=== PATIENT | female | born 1945 | race Caucasian/White ===

== ENCOUNTER 2019-08-24 20:00 | Outpatient (CLI) | payer MEDICARE, OTHER, SELFPAY | END 2019-08-24 20:01 | disposition home or self-care (01) | LOC: SLEEP 08-25 10:06 | PROVIDERS: Family Provider Family Medicine; PCP Family Medicine; Visit Provider Family Medicine | DX: G47.33 Obstructive sleep apnea (adult) (pediatric) (principal) | CPT/HCPCS: 95810 ==

== ENCOUNTER 2020-02-21 10:38 | Outpatient (CLI) | payer MEDICARE, OTHER, SELFPAY ==
--- NOTE | 2020-02-21 10:54 | XRR_ITS ---
PROCEDURE INFORMATION: Exam: XR Lumbosacral Spine, 2 or 3 Views Exam date and time: 02/21/2020 11:39 AM Age: 74 years old Clinical indication: Other: Right lumbar radiculopathy TECHNIQUE: Imaging protocol: XR of the lumbosacral spine, 2 or 3 views. COMPARISON: US Renal Kidney Structu* [id number] 03/02/2018 8:35 AM FINDINGS: Vertebrae: Severe diffuse degenerative disc disease reflected as severe decrease in disc space height and anterior endplate osteophytosis. No spondylolisthesis No pars defect. No fracture. Multi-level facet hypertrophic changes- Soft tissues: Unremarkable. XR/XR lumbar spine 2-3V* [id number] IMPRESSION: Severe diffuse degenerative disc disease.
== END 2020-02-21 10:39 | disposition home or self-care (01) ==
LOC: RAD 10:46
PROVIDERS: PCP Family Medicine; Visit Provider Family Medicine
DX: M54.16 Radiculopathy, lumbar region (principal); M51.36 Other intervertebral disc degeneration, lumbar region
CPT/HCPCS: 72100

== ENCOUNTER 2020-03-02 07:58 | Outpatient (CLI) | payer MEDICARE, OTHER, SELFPAY ==
--- NOTE | 2020-03-02 08:08 | MM_ITS ---
WS: [id number] Bilateral diagnostic digital mammogram, 03/02/2020 Clinical Data: HX OF BREAST CA Comparison: 10/31/2017, 10/17/2017. Findings: There is a scar in the upper outer quadrant of the right breast. No evidence for recurrence is seen. There are ductal calcifications in both breasts. Fibroglandular tissue is seen. MM/[place] [id number] Impression: 1. Scarring upper outer quadrant right breast but no evidence of recurrence. 2. Negative left breast. 3. Recommend annual mammograms. BIRADS: 2-Benign FOLLOW UP: 1 Year Follow-up The CAD checker product design was used.
== END 2020-03-02 07:59 | disposition home or self-care (01) ==
LOC: RADSHAW 08:05
PROVIDERS: PCP Family Medicine; Visit Provider Family Medicine
DX: Z85.3 Personal history of malignant neoplasm of breast (principal)
CPT/HCPCS: 77066

== ENCOUNTER 2020-03-08 12:22 | Outpatient (CLI) | payer MEDICARE, OTHER, SELFPAY ==
--- NOTE | 2020-03-08 12:45 | US_ITS ---
WS: [id number] RENAL ULTRASOUND URINARY BLADDER ULTRASOUND HISTORY: CKD STAGE III COMPARISON: 03/02/2018 TECHNIQUE: 2-D and color Doppler imaging of the kidney submitted. Technically difficult evaluation of the kidneys due to body habitus. Right kidney: 11.2 cm x 4.8 cm x 4.9 cm. Poorly visualized kidney. There is no hydronephrosis or mass identified. Simple cyst from the inferio r pole measures 3.3 x 2.3 x 3.0 cm. Left kidney: 10.7 cm x 4.2 cm x 5.0 cm. Poorly visualized kidney. No hydronephrosis or mass identified. Several cysts associated with the LEF T kidney. Largest in the mid kidney measures 4.7 x 4.4 x 4.8 cm. No solid mass. Aorta: Not visualized. Urinary Bladder: Moderate distention of the urinary bladder. No intraluminal filling defects. No sign ificant post void residual. US/US renal BI* [id number] IMPRESSION: 1. Technically difficult evaluation of the kidneys due to body habitus. 2. Bilateral renal cysts. 3. No hydronephrosis. 4. No post void residual.
== END 2020-03-08 12:23 | disposition home or self-care (01) ==
LOC: RAD 12:25
PROVIDERS: PCP Family Medicine; Visit Provider Family Medicine
DX: N18.3 Chronic kidney disease, stage 3 (moderate) (principal); Q61.02 Congenital multiple renal cysts
CPT/HCPCS: 76770

== ENCOUNTER 2020-03-20 08:40 | Outpatient (CLI) | payer MEDICARE, OTHER, SELFPAY ==
--- NOTE | 2020-03-20 09:50 | FL_ITS ---
WS: [id number] MODIFIED BARIUM SWALLOW HISTORY: Other dysphagia FLUOROSCOPY TIME: 1.4 minutes. Modified barium swallow was performed by the speech pathologist. Fluoroscopy was provided with the pa tient in a lateral projection. Multiple food consistencies were provided. Patient swallowed all food consistencies without difficulty. There were a few episodes of laryngeal p enetration with the thin liquids. No aspiration. Barium tablet was swallowed without difficulty. FL/FL barium swallow modifd [id number] IMPRESSION: 1. A few episodes of laryngeal penetration with thin liquids. 2. No aspiration. Please see speech therapist report also for recommendations.
== END 2020-03-20 08:41 | disposition home or self-care (01) ==
PROVIDERS: PCP Family Medicine; Visit Provider Specialist
DX: R13.10 Dysphagia, unspecified (principal)
CPT/HCPCS: 74230; 92611

== ENCOUNTER 2020-03-27 07:06 | Outpatient (CLI) | payer MEDICARE, OTHER, SELFPAY ==
--- NOTE | 2020-03-27 07:17 | CT_ITS ---
WS: [id number] CT NECK TECHNIQUE: Contrast-enhanced CT of the neck with coronal and sagittal reformatted images. CLINICAL INFORMATION: DYSPHAGIA COMPARISON: None. DLP: 1006.[address] scans at [facility] use at least one of these dose optimization techniques: automat ed exposure control; mA and/or kV adjustment per patient size (includes targeted exams where dose is matched to clinical indication); or iterative reconstruction. FINDINGS: Parotid glands are normal. Normal submandibular glands. Normal parapharyngeal fat. Tongue base appear s normal. Normal piriform sinuses. Subglottic airway is patent. Paranasal sinuses and mastoid air cells well aerated. Slightly nodular right thyroid gland. No cervi constantin lymphadenopathy. Aortic calcification. Tortuous right subclavian artery. Spiculated fibrotic lesion in the right upper lobe measuring 8 mm is nonspecific. Noncalcified pulmonary nodule right upper lobe laterally partial ly visualized measuring 9 mm. Recommend further evaluation with chest CT. CT/CT neck w con* [id number] IMPRESSION: 1. No evidence of supraglottic or glottic mass. 2. Normal salivary glands. 3. Normal posterior nasopharynx and parapharyngeal fat. Normal subglottic airw ay. 4. No cervical lymphadenopathy. 5. 8 mm spiculated lesion right upper lobe is nonspecific. Recommend further e valuation with chest CT. Additional noncalcified nodule right upper lobe latera lly measuring 9 mm partially visualized. 6. Slight nodular right thyroid gland. This can be followed up with ultrasound .
--- NOTE | 2020-03-27 07:17 | FL_ITS ---
WS: [id number] ESOPHAGRAM TECHNIQUE: Double contrast examination was performed with thin and thick barium. Upright and CORREA imag es were obtained. CLINICAL INFORMATION: DYSPHAGIA COMPARISON: None. FINDINGS: Swallowing: No evidence of aspiration or penetration with thin liquid. Esophagus: Mild esophageal dysmotility with delayed emptying. No stricture or mass. Gastroesophageal reflux: Mild reflux into the distal esophagus only seen on the supine imaging. Small esophageal hiatal hernia. No difficulties with the barium tablet. Fluoroscopy time: 2.9 minutes. FL/FL barium swallow [id number] IMPRESSION: 1. No evidence of aspiration or penetration with thin liquids. 2. Mild esophageal dysmotility with delayed emptying on the upright imaging. 3. Mild reflux only seen on the supine imaging to the distal esophagus. Small esophageal hiatal hernia.
[2020-03-27 08:49] LABS: Hematocrit 42.9 % (37.0-47.0); Hemoglobin 12.9 g/dL (11.5-15.3); Mean Corpuscular HGB Conc 30.1 g/dL (30.0-36.0); Mean Corpuscular Hemoglobin 27.4 pg (28.0-34.0); Mean Corpuscular Volume 91.1 fL (81-99); Mean Platelet Volume 10.7 fL (7.4-10.4); Platelet Count 241 10^3/cmm (130-400); Red Blood Count 4.71 10^6/uL (4.1-5.3); Red Cell Distribution Width 14.1 % (12.1-15.1); White Blood Count 7.6 10^3/uL (4.0-10.0)
[2020-03-27 09:12] LABS: Blood Urea Nitrogen 21 mg/dL (8-23); Free T4 Free Thyroxine 1.18 ng/dL (0.82-1.77); Thyroid Stimulating Hormone 2.82 uIU/mL (0.27-4.20)
[2020-03-27 09:31] LABS: Band Neutrophils Absolute 0.2 10^3/cmm (0.0-1.2); Lymphocytes 15 %; Monocytes Absolute 0.2 10^3/cmm (0.1-0.6); Segmented Neutrophils 79 %; Total Cells Counted 100 (0-100)
[2020-03-27 09:32] LABS: Absolute Neutrophil 6.2 10^3/cmm (1.4-6.5); Platelet Estimate Normal (Normal)
[2020-03-27 09:50] LABS: Erythrocyte Sedimentation Rate 38 mm/hr (0-15)
[2020-03-28 18:03] LABS: Alternaria Alternata (M6) Ige 0.49 kU/L; Alternaria Class 1; Bermuda Class 0; Bermuda Grass (G2) Ige <0.10 kU/L; Cat Dander (E1) Ige <0.10 kU/L; Cat Dander Class 0; Common Ragweed (Short) (W1) Ig <0.10 kU/L; D. Farinae Class 2; Dermatophagoides Class 2; Dermatophagoides Farinae (D2) 1.05 kU/L; Dermatophagoides Pteronyssinus 1.22 kU/L; Dog Dander (E5) Ige <0.10 kU/L; Dog Dander Class 0; Elm (T8) Ige <0.10 kU/L; Elm Class 0; English Plantain (W9) Ige <0.10 kU/L; English Plantain Class 0; House Dust (Greer) (H1) Ige 0.24 kU/L; House Dust Class 0/1; Immunoglobulin E 308 kU/L (<OR=114); Johnson Grass (G10) Ige <0.10 kU/L; Johnson Grass Cl 0; June Grass Class 0; June Grass(Kentucky Blue) (G8) <0.10 kU/L; Lamb'S Quarters (Goose Foot) <0.10 kU/L; Lamb'S Quarters Class 0; Maple (Box Elder) (T1) Ige <0.10 kU/L; Maple Class 0; Meadow Fescue (G4) Ige <0.10 kU/L; Meadow Fescue Class 0; Mucor Racemosus Class 0; Oak (T7) Ige <0.10 kU/L; Oak Class 0; Orchard Grass (Cocksfoot) (G3) <0.10 kU/L; Penicillium Class 0/1; Penicillium Notatum (M1) Ige 0.19 kU/L; Perennial Rye Grass (G5) Ige <0.10 kU/L; Perennial Rye Grass Class 0; Ragweeed Class 0; Rough Marsh Elder (W16) Ige <0.10 kU/L; Rough Marsh Elder Class 0; Sweet Vernal Class 0; Sweet Vernal Grass (G1) Ige <0.10 kU/L; Timothy Grass (G6) Ige <0.10 kU/L; Timothy Grass Class 0
[2020-03-29 12:14] LABS: Anti-Nuclear Antibody Screen POSITIVE (NEGATIVE)
[2020-03-30 18:49] LABS: Aspergillus Fumigatus, Igg Ab, 15.1 mg/L (<=102)
== END 2020-03-27 07:07 | disposition home or self-care (01) ==
PROVIDERS: PCP Family Medicine; Visit Provider Specialist
DX: R13.10 Dysphagia, unspecified (principal); R91.1 Solitary pulmonary nodule; E04.1 Nontoxic single thyroid nodule; K44.9 Diaphragmatic hernia without obstruction or gangrene
CPT/HCPCS: 70491; 74220; 82565; 82785; 84439; 84443; 84520; 85007; 85027; 85651; 86003; 86038; 86160; 86161

== ENCOUNTER → 2020-04-13 12:28 | Outpatient (BNVA) | payer MEDICARE, OTHER, SELFPAY | PROVIDERS: PCP Family Medicine; Referring Provider Family Medicine; Visit Provider Urology | DX: R31.9 Hematuria, unspecified (principal); N39.41 Urge incontinence | CPT/HCPCS: 80053; 81001 ==

== ENCOUNTER → 2020-04-20 09:15 | Outpatient (BNVA) | payer MEDICARE, OTHER, SELFPAY | PROVIDERS: PCP Family Medicine; Referring Provider Family Medicine; Visit Provider Anesthesiology Pain Medicine | DX: M51.36 Other intervertebral disc degeneration, lumbar region (principal); M47.816 Spondylosis without myelopathy or radiculopathy, lumbar region; M54.16 Radiculopathy, lumbar region; M54.9 Dorsalgia, unspecified; R09.02 Hypoxemia; Z79.891 Long term (current) use of opiate analgesic | CPT/HCPCS: 88112; 99203; 99204 ==

== ENCOUNTER 2020-04-28 07:39 | Outpatient (CLI) | payer MEDICARE, OTHER, SELFPAY ==
--- NOTE | 2020-04-28 07:57 | MR_ITS ---
WS: [id number] MRI LUMBAR SPINE NONCONTRAST HISTORY: M54.16 Radiculopathy, lumbar region COMPARISON: None available. TECHNIQUE: Sagittal and axial multisequence imaging is submitted. Moderate increase in thoracic kyphosis. No cord compression. Posterior lumbar alignment is normal. Benign hemangioma in T10. Severe disc space narrowing and desic cation at L5-S1. Additional benign hemangioma at L4. No marrow edema or acute fracture in the lumbar spine. Conus terminates normally at L1. L1-L2: No stenosis. No disc protrusion. L2-L3: Mild facet arthritis. No significant stenosis. L3-L4: Very mild annular disc bulging and facet arthritis. No significant stenosis. L4-L5: Very mild annular disc bulging. Mild to moderate facet joint arthritis bilaterally and ligamen mike flavum hypertrophy. There is minimal encroachment into the LEFT foramen by facet disease nerve ro ots and thecal sac are becoming distributed within the periphery. No significant stenosis. L5-S1: Mild osteophytic ridging. There is a very shallow LEFT foraminal disc protrusion. Very minimal narrowing of the LEFT foramen. Again nerve roots are distributed within the periphery of the thecal sac. Numerous bilateral renal cysts. Some of these cysts are large. The largest measures 10 cm involving t he LEFT kidney. r 2 cm lipoma subcutaneous soft tissues at the L4-5 level. MR/MR lumbar spine wo con* [id number] IMPRESSION: 1. No significant central or foraminal stenosis. 2. Very minimal encroachment into the LEFT foramen at L4-5 and L5-S1. 3. [id number] facet joint arthritis at L4-5. 4. Severe degenerative disc disease at L5-S1.
== END 2020-04-28 07:40 | disposition home or self-care (01) ==
LOC: RADWPI 07:46
PROVIDERS: Family Provider Family Medicine; PCP Family Medicine; Visit Provider Anesthesiology Pain Medicine
DX: M54.16 Radiculopathy, lumbar region (principal); M47.816 Spondylosis without myelopathy or radiculopathy, lumbar region; M51.37 Other intervertebral disc degeneration, lumbosacral region
CPT/HCPCS: 72148

== ENCOUNTER 2020-05-18 06:43 | Outpatient (CLI) | payer MEDICARE, OTHER, SELFPAY ==
[2020-05-18 07:49] LABS: Blood Urea Nitrogen 27 mg/dL (8-23)
--- NOTE | 2020-05-18 08:00 | CT_ITS ---
WS: [id number] CT ABDOMEN AND PELVIS WITH AND WITHOUT CONTRAST HISTORY: HEMATURIA TECHNIQUE: Unenhanced 5 mm axial imaging first performed through the abdomen. Post contrast imaging t hrough the abdomen and pelvis. Oral contrast has not been provided. Sagittal and coronal reformats a re submitted. All CT scans at [facility] use at least one of these dose optimization tech niques: automated exposure control; mA and/or kV adjustment per patient size (includes targeted exams where dose is matched to clinical indication); or iterative reconstruction. CONTRAST: Visipaque 320; 95 mL IV. DLP: 6138.87 mGy.cm COMPARISON: 11/13/2018, MRI 11/17/2018 Lung bases are clear. Heart size is normal. No hiatal hernia. RIGHT kidney: Normal size RIGHT kidney measuring 12.2 cm in length. There are numerous cystic masses within the kidney which do not enhance. Majority of these are cysts. There are a few cysts of minimal increased attenuation which do not enhance. The largest cyst from the lower pole measures 4.2 x 3.8 cm. No hydronephrosis or ureteral obstruction. RIGHT ureter is visualized throughout nearly its entir e course. Focal filling defect in the mid RIGHT ureter near the pelvic brim, image 59 of series 5. LEFT kidney: LEFT kidney measures 14.1 cm in length. Multiple cysts are identified. Largest cyst from the mid lateral kidney measures 6.5 x 8.8 cm. No solid mass. No renal calcification or obstruction. LEFT kidney is being elevated from the retroperitoneum by the large posterior cyst. Hepatic and splenic granulomata. Prior cholecystectomy. Again noted is the lobulated cystic mass at t he pancreatic head measuring 1.9 x 2.5 cm without increase in size. Again noted is nodular thickening of the LEFT adrenal gland which is stable. RIGHT adrenal gland is normal. Mild atherosclerosis aorta . Fat-containing umbilical hernia. No GI tract obstruction. Sigmoid diverticulosis without acute dive rticulitis. Normally distended urinary bladder. No intraluminal filling defect. Increase in lumbar lordosis. No osteoblastic or osteolytic bone disease. CT/CT abdomen pelvis wo/w [id number] IMPRESSION: 1. Numerous bilateral renal cysts of various sizes. No solid mass or neoplasm identified. 2. Filling defect in the mid RIGHT ureter may be incomplete distention related to tortuosity of the ureter. Ureteral neoplasm is not excluded but thought to be less likely. 3. No renal obstruction or calcifications. 4. Prior cholecystectomy. 5. 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 No change since 11/17/2018. 6. No ascites or adenopathy. 7. Negative urinary bladder.
[2020-05-18] MEDS: iodixanol 320 mg/mL 100mL Btl IV (08:14)
== END 2020-05-18 06:44 | disposition home or self-care (01) ==
LOC: RAD 06:45
PROVIDERS: Family Provider Family Medicine; PCP Family Medicine; Visit Provider Urology
DX: R31.9 Hematuria, unspecified (principal); K86.9 Disease of pancreas, unspecified; Q61.02 Congenital multiple renal cysts; N39.41 Urge incontinence
CPT/HCPCS: 36415; 74178; 81001; 82565; 84520

== ENCOUNTER → 2020-05-25 09:50 | Outpatient (BNVA) | payer MEDICARE, OTHER, SELFPAY | PROVIDERS: Family Provider Family Medicine; PCP Family Medicine; Visit Provider Anesthesiology Pain Medicine | DX: M54.9 Dorsalgia, unspecified (principal); M51.36 Other intervertebral disc degeneration, lumbar region; M47.816 Spondylosis without myelopathy or radiculopathy, lumbar region; M54.16 Radiculopathy, lumbar region | CPT/HCPCS: 99213; 99214 ==

== ENCOUNTER → 2020-07-20 12:37 | Outpatient (BNVA) | payer MEDICARE, OTHER, SELFPAY | PROVIDERS: Family Provider Family Medicine; PCP Family Medicine; Visit Provider Anesthesiology Pain Medicine | DX: M51.36 Other intervertebral disc degeneration, lumbar region (principal); M47.816 Spondylosis without myelopathy or radiculopathy, lumbar region; M54.16 Radiculopathy, lumbar region; M54.9 Dorsalgia, unspecified; Z79.899 Other long term (current) drug therapy | CPT/HCPCS: 99213 ==

== ENCOUNTER 2020-11-21 08:46 | Emergency (ER) | payer MEDICARE, OTHER, SELFPAY ==
[2020-11-21 09:12] VITALS: BP 190/90; PULSE 74; RESP 28; TEMP 37.2; O2SAT 95; BMI 33.0
--- NOTE | 2020-11-21 09:28 | XRR_ITS ---
PROCEDURE INFORMATION: Exam: XR Chest Exam date and time: 11/21/2020 9:41 AM Age: 75 years old Clinical indication: Cough and dyspnea; Additional info: Dyspnea/cough TECHNIQUE: Imaging protocol: XR of the chest Views: Frontal portable upright view of the chest. COMPARISON: CR Chest 1 [place] [id number] 07/26/2019 12:05 PM FINDINGS: Lungs: The lungs are clear bilaterally. The pulmonary vasculature is normal. Pleural spaces: No pleural effusion. No pneumothorax. Heart/Mediastinum: The heart is normal in size and contour. Mediastinum: Stable. Vasculature: Moderate aortic arch atherosclerotic calcification without ectasia. Bones/joints: Stable. XR/XR chest 1V portable [id number] IMPRESSION: No acute cardiopulmonary abnormality identified.
--- NOTE | 2020-11-21 09:28 | ECG_ITS ---
[facility] Test Date: 2020-11-21 Pat Name: Savannah Poon Department: Room: Gender: Female Call Or Contact Centre Coach: : 1945 Requested By: Robert Alegre Order Number: [id number] Letha MD: Benjamin Lakhani M.D. Measurements Intervals [place] Rate: 76 P: 180 HI: 158 QRS: 185 QRSD: 98 T: 165 QT: 372 QTc: 419 Interpretive Statements Supraventricular rhythm likely sinus rhythm (Interpretation limited because of baseline abnormalities) POSSIBLE RIGHT VENTRICULAR HYPERTROPHY [SOME/ALL OF: PROMINENT R IN V1, LATE TRANSITION, RAD, KEYA, SSS] LATERAL MYOCARDIAL INFARCTION , OF INDETERMINATE AGE [40+ ms Q WAVE AND/OR ST/T ABNORMALITY IN I/aVL/V5/V6] Compared to ECG 11/12/2018 18:23:11 Ectopic atrial rhythm now present Sinus rhythm no longer present Sinus arrhythmia no longer present Myocardial infarct finding still present Electronically Signed On 11-21-2020 17:01:37 CDT by Benjamin Lakhani M.D. [id number]
--- NOTE | 2020-11-21 09:35 | W.ED.SOB ---
HPI - SOB/Dyspnea General: Chief Complaint: Shortness of Breath/Dyspnea Stated Complaint: COUGH, SOB, DRAINAGE Time Seen by Provider: 11/21/20 08:48 History of Present Illness: HPI Narrative: 75-year-old female presents emergency room complaining of 4 days of shortness of breath cough nasal drainage. Cough is been moderately productive. She is not had any chest pain or abdominal pain she has had some dysuria however. She denies fevers no anosmia or diarrhea. MD elicited complaint: shortness of breath and cough Pertinent past history: COPD Onset (ago): day(s) (4) Timing: constant Severity: mild Exacerbating factors: exertion and coughing Relieving factors: rest and bronchodilators Known history of: COPD Associated symptoms: Reports chest congestion, cough and fever(s); Deny abdominal pain, chest pain, diaphoresis, dizziness, extremity pain, hemoptysis, lightheadedness, myalgias, nausea, orthopnea, palpitations, paresthesias, polydipsia, polyuria, rash, sense of impending doom, syncope or vomiting Treatment prior to arrival: none Review of Systems Const: Reports: fever(s); Denies: diaphoresis ENMT: Denies: throat pain, ear or mastoid pain, nasal discharge or nasal congestion Card: Denies: chest pain, palpitations, lightheadedness, syncope or orthopnea Resp: Reports: chest congestion; Denies: hemoptysis GI: Denies: abdominal pain, nausea or vomiting : Denies: flank pain, difficulty voiding, dysuria, urinary frequency or urinary urgency Musc: Denies: extremity pain Skin/Breast: Denies: rash or pruritus Neuro: Denies: dizziness Endo: Denies: polyuria or polydipsia PFSH ED PFSH: Medical History (Updated 11/21/20 @ 11:05 by Robert Bautista DO) Asymptomatic microscopic hematuria COPD (chronic obstructive pulmonary disease) Urgency incontinence Family History Denies family history of Anesthesia complication Social History Smoking and tobacco status: former smoker Alcohol intake: former Adopted: No Caregiver/support person: No Lives independently: Yes Marital status: / Current occupational status: retired Physical Exam Const: COMMON NORMALS: no acute distress GENERAL APPEARANCE: cooperative and comfortable ORIENTATION/CONSCIOUSNESS: Yes awake, Yes oriented to person, Yes oriented to place and Yes oriented to time HENMT: COMMON NORMALS: normocephalic, atraumatic and hearing grossly normal bilaterally HEAD & SCALP: normocephalic and atraumatic Neck/C-Spine: COMMON NORMALS: no JVD Resp: COMMON NORMALS: normal respiratory effort, No retractions, No use of accessory muscles and clear to auscultation bilaterally AUSCULTATION: clear to auscultation bilaterally Cardio: COMMON NORMALS: no JVD, regular rate, regular rhythm and No murmurs present (Cardio) RATE: regular rate RHYTHM: regular rhythm GI: COMMON NORMALS: Soft to palpation and No hepatosplenomegaly present AUSCULTATION: Yes normoactive bowel sounds PALPATION: Yes Soft to palpation, No Tenderness to palpation present (GI), No Guarding due to palpation present (GI) and Yes No hepatosplenomegaly present Extremity: COMMON NORMALS: normal to inspection, capillary refill normal, no clubbing, cyanosis or edema, no calf tenderness and no pedal edema Neuro: SENSORIUM/ORIENTATION: Yes oriented to person, Yes oriented to place and Yes oriented to time Skin: COMMON NORMALS: no rashes or lesions noted GENERAL SKIN EXAM: no rashes or lesions noted Course Vital Signs: Vital signs: Vital Signs Temperature 99.0 F 11/21/20 09:12 Pulse Rate 78 11/21/20 11:26 Respiratory Rate 24 H 11/21/20 11:26 Blood Pressure 190/90 11/21/20 09:12 Pulse Oximetry 95 11/21/20 11:26 MDM - SOB/Dyspnea MDM Narrative: Medical decision making narrative: Appears to be more of a COPD exacerbation. She does have some rhinorrhea and had some loose stools and will go ahead and test her with a PCR for Covid. Ascaris maintain self quarantine until results are back we will discharge her home on Medrol Dosepak doxycycline and albuterol if she has worsening symptoms return. Lab Data: Labs: Lab Results 11/21/20 11/21/20 11/21/20 Range/Units 10:20 10:20 10:20 WBC 10.6 H (4.0-10.0) 10^3/ uL RBC 4.54 (4.1-5.3) 10^6/u L Hgb 12.8 (11.5-15.3) g/dL Hct 40.6 (37.0-47.0) % MCV 89.4 (81-99) fL MCH 28.2 (28.0-34.0) pg MCHC 31.5 (30.0-36.0) g/dL RDW 13.9 (12.1-15.1) % Plt Count 241 (130-400) 10^3/c mm MPV 10.5 H (7.4-10.4) fL Neut % (Auto) 82.1 % Lymph % (Auto) 7.7 % Bleckley % (Auto) 7.7 % Eos % (Auto) 1.9 % Baso % (Auto) 0.3 % Neut # (Auto) 8.73 H (1.8-7.7) 10^3/u L Lymph # (Auto) 0.8 (0.8-4.8) 10^3/u L Bleckley # (Auto) 0.8 (0.2-0.9) 10^3/u L Eos # (Auto) 0.2 (0.0-0.8) 10^3/u L Baso # (Auto) 0.0 (0.0-0.1) 10^3/u L Nucleated RBC % (a uto) 0 % Nucleated RBCs # 0.0 /100WBC Sodium 138 (136-145) mmol/L Potassium 3.7 (3.5-5.1) mmol/L Chloride 100 (98-107) mmol/L Carbon Dioxide 28 (22-29) mmol/L Anion Gap 13.7 (5-19) BUN 22 (8-23) mg/dL Creatinine 0.9 (0.5-0.9) mg/dL GFR Calculation Not Reportable Glucose 106 (65-115) mg/dL Calculated Osmolal ity 290 (285-295) mOsm/k g Calcium 8.7 (8.5-10.5) mg/dL Total Bilirubin 0.4 (0.15-1.2) mg/dL AST 10 (0-32) U/L ALT 9 (0-33) U/L Alkaline Phosphata se 62 (35-105) IU/L Total Protein 7.1 (6.6-8.7) g/dL Albumin 4.0 (3.5-5.2) g/dL Globulin 3.1 (1.3-4.6) g/dL Urine Color (Yellow) Urine Appearance (CLEAR) Urine pH (5-7) Ur Specific Gravit y (1.005-1.030) Urine Protein (Negative) Urine Glucose (UA) (Normal) Urine Ketones (Negative) Urine Blood (Negative) Urine Nitrate (Negative) Urine Bilirubin (Negative) Urine Urobilinogen (Negative) mg/dL Ur Leukocyte Courtney ase (Negative) Urine RBC (0-2) /hpf Urine WBC (0-5) /hpf Ur Squamous Epith Cells (0-5) /hpf Amorphous Sediment Urine Bacteria (NONE) /hpf Urine Mucus /hpf Urine Yeast /hpf Nasal/Oral COVID-1 9 PCR Not detected 11/21/20 Range/Units 11:07 WBC (4.0-10.0) 10^3/ uL RBC (4.1-5.3) 10^6/u L Hgb (11.5-15.3) g/dL Hct (37.0-47.0) % MCV (81-99) fL MCH (28.0-34.0) pg MCHC (30.0-36.0) g/dL RDW (12.1-15.1) % Plt Count (130-400) 10^3/c mm MPV (7.4-10.4) fL Neut % (Auto) % Lymph % (Auto) % Bleck[place] % (Auto) % Eos % (Auto) % Baso % (Auto) % Neut # (Auto) (1.8-7.7) 10^3/u L Lymph # (Auto) (0.8-4.8) 10^3/u L Bleckley # (Auto) (0.2-0.9) 10^3/u L Eos # (Auto) (0.0-0.8) 10^3/u L Baso # (Auto) (0.0-0.1) 10^3/u L Nucleated RBC % (a uto) % Nucleated RBCs # /100WBC Sodium (136-145) mmol/L Potassium (3.5-5.1) mmol/L Chloride (98-107) mmol/L Carbon Dioxide (22-29) mmol/L Anion Gap (5-19) BUN (8-23) mg/dL Creatinine (0.5-0.9) mg/dL GFR Calculation Glucose (65-115) mg/dL Calculated Osmolal ity (285-295) mOsm/k g Calcium (8.5-10.5) mg/dL Total Bilirubin (0.15-1.2) mg/dL AST (0-32) U/L ALT (0-33) U/L Alkaline Phosphata se (35-105) IU/L Total Protein (6.6-8.7) g/dL Albumin (3.5-5.2) g/dL Globulin (1.3-4.6) g/dL Urine Color Yellow (Yellow) Urine Appearance Sl hazy (CLEAR) Urine pH 5 (5-7) Ur Specific Gravit y 1.015 (1.005-1.030) Urine Protein Neg (Negative) Urine Glucose (UA) Norm (Normal) Urine Ketones Negative (Negative) Urine Blood 3+ H (Negative) Urine Nitrate Positive H (Negative) Urine Bilirubin Neg (Negative) Urine Urobilinogen Norm (Negative) mg/dL Ur Leukocyte Courtney ase Negative (Negative) Urine RBC 15-25 H (0-2) /hpf Urine WBC None (0-5) /hpf Ur Squamous Epith Cells 0-4 H (0-5) /hpf Amorphous Sediment Not Reportable Urine Bacteria 3+ H (NONE) /hpf Urine Mucus Trace /hpf Urine Yeast 1+ H /hpf Nasal/Oral COVID-1 9 PCR Discharge Plan Discharge Patient Disposition: Home Clinical Impression: Acute exacerbation of chronic obstructive airways disease Condition: Stable Prescriptions: New doxycycline hyclate 100 mg capsule 100 mg PO BID 10 Days Qty: 20 RF: 0 Medrol (Eduin) 4 mg tablets,dose pack See Rx Instructions .ROUTE .COMPLEX Qty: 21 RF: 0 albuterol sulfate 90 mcg/actuation HFA aerosol inhaler 2 inh INHALATION Q4H PRN (Reason: shortness of breath or wheezing) Qty: 18 RF: 0 No Action ondansetron HCl 4 mg tablet 4 mg PO Q6H PRNRF: 0 oxybutynin chloride 10 mg tablet extended release 24hr 10 mg PO DAILY Qty: 30 RF: 6 albuterol sulfate 90 mcg/actuation aerosol powdr breath activated 2 inh INHALATION Q6H PRNRF: 0 cyclobenzaprine 10 mg tablet 10 mg PO TID PRNRF: 0 aspirin [Adult Low Dose Aspirin] 81 mg tablet,delayed release (DR/EC) 81 mg PO DAILY RF: 0 carvedilol 25 mg tablet 25 mg PO BID RF: 0 hydrochlorothiazide 25 mg tablet 25 mg PO DAILY RF: 0 tizanidine 2 mg tablet 2 mg PO BID PRN (Reason: muscle spasticity) Qty: 60 RF: 0 bupivacaine (PF) 0.25 % (2.5 mg/mL) solution 1 ml INTRA-TIGIST ONCE Qty: 1 RF: 0 lidocaine (PF) 10 mg/mL (1 %) solution 1 ml INTRA-TIGIST ONCE Qty: 1 RF: 0 Discharge Orders: Discharge ED (Routine); Ordered 11/21/20 Ordered By: Robert Bautista Referrals: Geovany Castelan MD [Primary Care Provider] - Discharge Diet: Usual diet Discharge Activity: Resume usual activity Patient Instructions: Opioid Safety Coding Level of Care Code ED Jewel Bearing Maker for Chg Fwd Exam Comprehensive
[2020-11-21 10:29] LABS: Basophils % 0.3 %; Eosinophils # 0.2 10^3/uL (0.0-0.8); Eosinophils % 1.9 %; Hematocrit 40.6 % (37.0-47.0); Hemoglobin 12.8 g/dL (11.5-15.3); Lymphocytes # 0.8 10^3/uL (0.8-4.8); Lymphocytes % 7.7 %; Mean Corpuscular HGB Conc 31.5 g/dL (30.0-36.0); Mean Corpuscular Hemoglobin 28.2 pg (28.0-34.0); Mean Corpuscular Volume 89.4 fL (81-99); Mean Platelet Volume 10.5 fL (7.4-10.4); Monocytes # 0.8 10^3/uL (0.2-0.9); Monocytes % 7.7 %; Neutrophils # 8.73 10^3/uL (1.8-7.7); Neutrophils % 82.1 %; Nucleated Red Blood Cells % 0 %; Platelet Count 241 10^3/cmm (130-400); Red Blood Count 4.54 10^6/uL (4.1-5.3); Red Cell Distribution Width 13.9 % (12.1-15.1); White Blood Count 10.6 10^3/uL (4.0-10.0)
[2020-11-21 11:01] LABS: Alanine Aminotransferase 9 U/L (0-33); Alkaline Phosphatase 62 IU/L (35-105); Anion Gap 13.7 (5-19); Aspartate Amino Transferase 10 U/L (0-32); Blood Urea Nitrogen 22 mg/dL (8-23); Calcium 8.7 mg/dL (8.5-10.5); Carbon Dioxide 28 mmol/L (22-29); Chloride 100 mmol/L (98-107); Globulin 3.1 g/dL (1.3-4.6); Glucose 106 mg/dL (65-115); Osmolality Calculated 290 mOsm/kg (285-295); Potassium 3.7 mmol/L (3.5-5.1); Sodium 138 mmol/L (136-145); Total Bilirubin 0.4 mg/dL (0.15-1.2); Total Protein 7.1 g/dL (6.6-8.7)
[2020-11-21 11:20] VITALS: PULSE 78; RESP 24; O2SAT 95
[2020-11-21 11:26] VITALS: PULSE 78; RESP 24; O2SAT 95
[2020-11-21 12:01] LABS: Add Urine Microscopic? YES; Bilirubin Urine Neg (Negative); Blood Urine 3+ (Negative); Glucose Urine UA Norm (Normal); Ketones Urine Negative (Negative); Leukocyte Esterase Urine Negative (Negative); Nitrate Urine Positive (Negative); Protein Urine Neg (Negative); Specific Gravity, Urine 1.015 (1.005-1.030); Urine Appearance SL Hazy (CLEAR); Urine Color Yellow (Yellow); Urobilinogen Urine Norm (Negative); pH Urine 5 (5-7)
[2020-11-21 12:17] LABS: Add Urine Culture? Yes; Bacteria Urine 3+ /hpf; Mucus Urine TRACE /hpf; RBC Urine 15-25 /hpf (0-2); Squamous Epithelial Cell Urine 0-4 /hpf (0-5)
[2020-11-22 14:04] LABS: Coronavirus Test Green County Not Detected
--- NOTE | 2020-11-22 17:01 | PC.NURSE ---
pt notified of negative COVID results
== END 2020-11-21 11:27 | disposition home or self-care (01) ==
PROVIDERS: Emergency Provider Family Medicine; PCP Family Medicine
DX: J44.1 Chronic obstructive pulmonary disease with (acute) exacerbation (principal); Z79.82 Long term (current) use of aspirin; Z87.891 Personal history of nicotine dependence; Z79.899 Other long term (current) drug therapy
CPT/HCPCS: 36415; 71045; 80053; 81001; 85025; 87077; 87086; 87186; 87635; 93005; 99283

== ENCOUNTER → 2021-09-17 10:56 | Outpatient (BNVA) | payer MEDICARE, OTHER, SELFPAY | PROVIDERS: PCP Family Medicine; Visit Provider Internal Medicine Nephrology | DX: N18.32 Chronic kidney disease, stage 3b (principal); Z79.899 Other long term (current) drug therapy | CPT/HCPCS: 80069; 82043; 83883; 84155; 84165 ==

== ENCOUNTER 2021-11-22 12:17 | Outpatient (CLI) | payer MEDICARE, OTHER, SELFPAY ==
--- NOTE | 2021-11-22 12:31 | USCV_ITS ---
Savannah Manoz Age: 76 Gender: F : 1945 Exam Date: 11/22/2021 12:45 Ordering Phys: VIC Technologist: Exam Location: [facility] – [place] Indication: chest pain BP: 138 / 85 HR: 71 Rhythm: Sinus Technical Quality: Suboptimal MEASUREMENTS (Male / Female) Normal Values 2D ECHO LV Diastolic Diameter PLAX 4.2 cm 4.2 - 5.9 / 3.9 - 5.3 cm LV Systolic Diameter PLAX 3.2 cm IVS Diastolic Thickness 1.5 cm 0.6 - 1.0 / 0.6 - 0.9 cm IVS Systolic Thickness 1.7 cm LVPW Diastolic Thickness 1.6 cm 0.6 - 1.0 / 0.6 - 0.9 cm LVPW Systolic Thickness 1.8 cm LVOT Diameter 2.1 cm LV Ejection Fraction 2D Teich 47.5 % LA Diameter 3.9 cm Aorta at Sinotubular Diameter 3.2 cm M-MODE Aortic Annulus Diameter 3.4 cm LA Ao Ratio MM 1.2 DOPPLER AV Peak Velocity 132.0 cm/s LVOT Peak Velocity 107.0 cm/s AV Area Cont Eq vti 2.3 cm squared AV Area Cont Eq pk 2.7 cm squared MV Area PHT 5.0 cm squared Mitral E to A Ratio 0.8 MV E' Velocity 46.5 cm/s Mitral E to MV E' Ratio 13.7 Mitral E to LV E' Lateral Ratio 10.9 Mitral E to LV E' Septal Ratio 18.5 TR Peak Velocity 144.0 cm/s TR Peak Gradient 8.3 mmHg TV Peak E Velocity 66.0 cm/s Right Atrial Pressure 3.0 mmHg Pulmonary Artery Systolic Pressu 11.3 mmHg PV Peak Velocity 121.0 cm/s FINDINGS Left Ventricle Normal left ventricular size. LV systolic function is normal with EF of 55-60%. No regional wall motion abnormalities. Grade 1 diastolic dysfunction Right Ventricle Grossly normal Right Atrium Not well visualized Left Atrium The left atrium is normal in size. Mitral Valve Mild mitral annular calcification without significant stenosis or prolapse. There is no mitral regurgitation. Aortic Valve Grossly normal without significant stenosis. There is no aortic regurgitation. Tricuspid Valve Grossly normal Pulmonic Valve Not well visualized Pericardium Normal pericardium without effusion. Aorta Normal ascending aorta dimension. CONCLUSIONS Technically limited quality echocardiogram because of poor ultrasonic windows LV systolic function is normal with EF of 55-60% Grade 1 diastolic dysfunction Mild mitral annular calcifcation Compared to prior echocardiogram from 11/12/2018, no significant changes are seen Benjamin Lakhani MD (Electronically Signed) Final Date: 01 December 2021 16:29 S
== END 2021-11-22 12:18 | disposition home or self-care (01) ==
LOC: RAD 12:20
PROVIDERS: PCP Family Medicine; Visit Provider Family Medicine
DX: R07.9 Chest pain, unspecified (principal); I05.9 Rheumatic mitral valve disease, unspecified
CPT/HCPCS: 93306

== ENCOUNTER 2021-11-28 10:10 | Outpatient (CLI) | payer MEDICARE, OTHER, SELFPAY ==
--- NOTE | 2021-11-28 10:23 | CT_ITS ---
WS: [id number] CT ABDOMEN AND PELVIS WITH CONTRAST HISTORY: ABDOMINAL PAIN TECHNIQUE: Imaging performed of the abdomen and pelvis with IV contrast. Single phase imaging of the abdomen. Coronal and sagittal reformats are submitted. All CT scans at [facility] use at [address] one of these dose optimization techniques: automated exposure control; mA and/or kV adjustment per patient size (includes targeted exams where dose is matched to clinical indication); or iterative re construction. IV CONTRAST: Omnipaque 300; 95 mL IV. Oral contrast: Yes. DLP: 1304.21 mGy.cm COMPARISON: 05/18/2020, 11/13/2018 Lower thorax: Lung bases are clear. Normal size heart. Mild atherosclerotic calcifications in the cor onary arteries. No hiatal hernia. Liver/biliary system: Normal size liver with a few granulomata. Normally enhancing portal vein. Gallbladder: Status post cholecystectomy. Pancreas: Lobulated cystic mass at the pancreatic head extends towards the neck. Mass described in . Very mild increase in size now measuring 3.7 x 2.4 cm. Mild pancreatic atrophy and no duct dilata tion. Spleen: Small granulomata. Adrenal glands: Normal RIGHT adrenal gland. Thickened heterogeneous lobulated appearance of the LEFT adrenal gland. Both limbs are decreased attenuation and lobulated. Similar to the studies dating back to 11/13/2018. Right kidney: Normal size kidney with multiple cysts. Multiple low-attenuation masses within the kidn ey. The largest in the lower pole measures 4.6 x 4.3 cm. There are several low-attenuation nodules wh ich are too small to characterize. Some of these may be complex cysts. Only minimal increase since . Left kidney: Numerous cystic masses throughout the LEFT kidney. The largest from the lateral kidney m easures 10.4 x 6.8 cm. Some of these nodules are complex cystic. No large solid mass. No obstruction. Aorta: Atherosclerotic changes within the aorta. No aneurysm. Small amount of plaque at the origin of the mesenteric arteries. No filling defects or occlusions. Lymphadenopathy: None. Free fluid: None. GI tract: Normally distended stomach. No small bowel obstruction. The appendix is normal. No mucosal thickening or edema throughout the colon. There are numerous diverticula in the sigmoid colon. There is mild narrowing of the lumen but no evidence for acute diverticulitis. No adjacent fluid. Abdominal wall: Fat containing umbilical hernia. Pelvis: Normally distended bladder. No free fluid or adenopathy. Bones: Increase in lumbar lordosis. Moderate degenerative disc space narrowing and desiccation at L5- S1. Facet joint arthritis in the lumbar spine is advanced. CT/CT abdomen pelvis w con* [id number] IMPRESSION: 1. No acute abdominal or pelvic abnormalities are identified. 2. Sigmoid diverticulosis without acute diverticulitis. 3. Atherosclerosis aorta and mesenteric arteries is mild. 4. Prior cholecystectomy. 5. Mildly enlarged cystic mass in the pancreatic head now measures 3.7 x 2.4 c m. No pancreatic duct dilatation. 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 No increase in size since 11/13/2018. This mass should undergo at least yearly C T evaluation to document continued long-term stability. 6. Bilateral renal cystic masses. Some of these are too small to characterize. 7. Normal appendix.
[2021-11-28] MEDS: iohexol 300 mg/mL 50 mL Btl PO (10:47)
[2021-11-28] MEDS: iohexol 300 mg/mL 100 mL Btl IV (10:47)
== END 2021-11-28 10:11 | disposition home or self-care (01) ==
PROVIDERS: PCP Family Medicine; Visit Provider Family Medicine
DX: R31.9 Hematuria, unspecified (principal); K57.30 Diverticulosis of large intestine without perforation or abscess without bleeding; N28.1 Cyst of kidney, acquired
CPT/HCPCS: 74177

== ENCOUNTER → 2022-07-02 11:06 | Outpatient (BNVA) | payer MEDICARE, OTHER, SELFPAY | PROVIDERS: PCP Family Medicine; Visit Provider Family Medicine | DX: Z51.81 Encounter for therapeutic drug level monitoring (principal); E78.5 Hyperlipidemia, unspecified; Z20.2 Contact with and (suspected) exposure to infections with a predominantly sexual mode of transmission; L60.8 Other nail disorders; D89.89 Other specified disorders involving the immune mechanism, not elsewhere classified; M54.16 Radiculopathy, lumbar region; Z13.220 Encounter for screening for lipoid disorders; L60.3 Nail dystrophy; R60.9 Edema, unspecified | CPT/HCPCS: 80053; 80061; 85025; 86592; 87806 ==

== ENCOUNTER → 2022-07-03 13:14 | Outpatient (BNVA) | payer MEDICARE, OTHER, SELFPAY | PROVIDERS: PCP Family Medicine; Visit Provider Family Medicine | DX: Z51.81 Encounter for therapeutic drug level monitoring (principal); E78.5 Hyperlipidemia, unspecified; Z20.2 Contact with and (suspected) exposure to infections with a predominantly sexual mode of transmission; D89.89 Other specified disorders involving the immune mechanism, not elsewhere classified; L60.8 Other nail disorders; M54.16 Radiculopathy, lumbar region; Z13.220 Encounter for screening for lipoid disorders; L60.3 Nail dystrophy; R60.9 Edema, unspecified | CPT/HCPCS: 83883; 85025 ==

== ENCOUNTER → 2022-07-16 10:33 | Outpatient (BNVA) | payer MEDICARE, OTHER, SELFPAY | PROVIDERS: PCP Family Medicine; Visit Provider Podiatrist Foot & Ankle Surgery | DX: I73.9 Peripheral vascular disease, unspecified (principal); L60.0 Ingrowing nail; B35.1 Tinea unguium | CPT/HCPCS: 11721; 99204 ==

== ENCOUNTER 2022-08-07 13:42 | Oncology outpatient (recurring) (ONCR) | payer MEDICARE, OTHER, SELFPAY ==
[2022-08-05 16:51] LABS: Basophils % 0.4 %; Eosinophils # 0.3 10^3/uL (0.0-0.8); Eosinophils % 2.9 %; Hematocrit 38.4 % (37.0-47.0); Hemoglobin 11.6 g/dL (11.5-15.3); Mean Corpuscular HGB Conc 30.2 g/dL (30.0-36.0); Mean Corpuscular Hemoglobin 27.1 pg (28.0-34.0); Mean Corpuscular Volume 89.7 fl (81-99); Mean Platelet Volume 10.5 fL (7.4-10.4); Monocytes # 0.7 10^3/uL (0.2-0.9); Monocytes % 6.9 %; Neutrophils # 8.17 10^3/uL (1.8-7.7); Neutrophils % 79.5 %; Nucleated Red Blood Cells % 0 %; Platelet Count 268 10^3/cmm (130-400); Red Blood Count 4.28 10^6/uL (4.1-5.3); Red Cell Distribution Width 14.4 % (12.1-15.1); White Blood Count 10.3 10^3/uL (4.0-10.0)
[2022-08-05 16:56] LABS: Erythrocyte Sedimentation Rate 54 mm/hr (0-15)
[2022-08-05 17:11] LABS: Alanine Aminotransferase 9 U/L (0-33); Albumin Level 3.7 g/dL (3.5-5.2); Alkaline Phosphatase 80 U/L (35-105); Aspartate Amino Transferase 10 U/L (0-32); Blood Urea Nitrogen 23 mg/dL (8-23); C Reactive Protein 26.4 mg/L (0.0-4.9); Calcium 8.8 mg/dL (8.5-10.5); Carbon Dioxide 32 mmol/L (22-29); Chloride 105 mmol/L (98-107); Globulin 3.4 g/dL (1.3-4.6); Glucose 85 mg/dL (65-115); Osmolality Calculated 303 mOsm/kg (285-295); Sodium 145 mmol/L (136-145); Total Bilirubin 0.3 mg/dL (0.15-1.2); Total Protein 7.1 g/dL (6.6-8.7)
[2022-08-07 06:24] LABS: PROTEIN, TOTAL 6.3 g/dL (6.1-8.1)
[2022-08-07 15:00] LABS: KAPPA LIGHT CHAIN, FREE, SERUM 47.6 mg/L (3.3-19.4); KAPPA/LAMBDA LIGHT CHAINS FREE 2.03 (0.26-1.65); LAMBDA LIGHT CHAIN, FREE, SERU 23.5 mg/L (5.7-26.3)
[2022-08-07 15:15] LABS: ALBUMIN 3.4 g/dL (3.8-4.8); ALPHA 1 GLOBULIN 0.4 g/dL (0.2-0.3); ALPHA 2 GLOBULIN 0.9 g/dL (0.5-0.9); BETA 1 GLOBULIN 0.4 g/dL (0.4-0.6); BETA 2 GLOBULIN 0.4 g/dL (0.2-0.5); GAMMA GLOBULIN 0.8 g/dL (0.8-1.7)
[2022-08-08 19:24] LABS: CREATININE, 24 HOUR URINE 1.17 g/24 h (0.50-2.15); PROTEIN, TOTAL, 24 HR UR 78 mg/24 h (<150); Protein/Creatinine Ratio 0.067 (<0.150); Protein/Creatinine Ratio 67 mg/g creat (<150)
[2022-08-09 11:31] LABS: ALBUMIN 100 %; ALPHA-1-GLOBULINS 0 %; ALPHA-2-GLOBULINS 0 %; BETA GLOBULINS 0 %; GAMMA GLOBULINS 0 %
[2022-08-12 15:19] LABS: Kappa Free Light Chains Urine 49.48 mg/L (<=32.90)
== END 2022-08-17 23:59 | disposition home or self-care (01) ==
PROVIDERS: PCP Family Medicine; Visit Provider Internal Medicine Medical Oncology
DX: D47.2 Monoclonal gammopathy (principal)
CPT/HCPCS: 36415; 80053; 83883; 84155; 84156; 84165; 84166; 85025; 85651; 86140; 86335; 99214; 99215

== ENCOUNTER 2022-10-14 10:57 | Outpatient (CLI) | payer MEDICARE, OTHER, SELFPAY ==
--- NOTE | 2022-10-14 11:14 | MM_ITS ---
WS: [id number] Bilateral diagnostic 3D tomosynthesis digital mammogram, 10/14/2022 Clinical Data: HX OF BREAST CANCER Comparison: 03/02/2020, 10/31/2017, 10/17/2017. Findings: The scar in the upper outer quadrant of the right breast has diminished in size. There are ductal constantin cifications in both breasts. There is fibroglandular tissue bilaterally. There are prominent veins in both breasts. MM/[place] [id number] Impression: 1. Scarring in the upper outer quadrant of the right breast which has diminishe d. 2. Negative left breast. 3. Recommend annual mammograms BIRADS: 2-Benign FOLLOW UP: 1 Year Follow-up The CAD dead mail checker was used.
== END 2022-10-14 10:58 | disposition home or self-care (01) ==
LOC: RAD 11:00
PROVIDERS: PCP Family Medicine; Visit Provider Internal Medicine Medical Oncology
DX: Z85.3 Personal history of malignant neoplasm of breast (principal); I73.9 Peripheral vascular disease, unspecified; L60.0 Ingrowing nail; B35.1 Tinea unguium
CPT/HCPCS: 11721; 77062; G0279

== ENCOUNTER → 2022-12-30 11:13 | Outpatient (BNVA) | payer MEDICARE, OTHER, SELFPAY | PROVIDERS: PCP Family Medicine; Visit Provider Podiatrist Foot & Ankle Surgery | DX: I73.9 Peripheral vascular disease, unspecified (principal); B35.1 Tinea unguium | CPT/HCPCS: 11721 ==

== ENCOUNTER → 2023-01-21 10:38 | Outpatient (BNVA) | payer MEDICARE, OTHER, SELFPAY | PROVIDERS: PCP Family Medicine; Visit Provider Internal Medicine Medical Oncology | DX: D47.2 Monoclonal gammopathy (principal); D64.9 Anemia, unspecified; C50.411 Malignant neoplasm of upper-outer quadrant of right female breast | CPT/HCPCS: 80053; 82607; 82784; 83550; 84155; 84165; 85025; 85651; 86140; 86334 ==

== ENCOUNTER 2023-03-07 10:17 | Outpatient (CLI) | payer MEDICARE, OTHER, SELFPAY ==
--- NOTE | 2023-03-07 10:30 | CT_ITS ---
WS: [id number] CT ABDOMEN AND PELVIS WITH CONTRAST HISTORY: Abdominal pain TECHNIQUE: Imaging performed of the abdomen and pelvis with IV contrast. Single phase imaging of the abdomen. Coronal and sagittal reformats are submitted. All CT scans at [facility] use at [address] one of these dose optimization techniques: automated exposure control; mA and/or kV adjustment per patient size (includes targeted exams where dose is matched to clinical indication); or iterative re construction. IV CONTRAST: Omnipaque 350; 100 mL IV. Oral contrast: Yes. DLP: 866.31 mGy.cm COMPARISON: 11/28/2021, 05/18/2020 and 11/13/2018 Lower thorax: Lung bases are clear. Heart is normal size. No hiatal hernia. Liver/biliary system: Normal size with no intrahepatic dilatation. Gallbladder: Cholecystectomy. Pancreas: Again noted is a cystic mass involving the pancreatic head measuring 3.6 x 2.5 cm. Similar in size as compared to prior examinations including 11/13/2018. Cystic mass is slightly lobulated with fine septations. The common bile duct is not dilated and is separate from this cystic mass. There is mild atrophy of the pancreas but no duct dilatation. Similar to the prior study. Spleen: Normal size spleen. No mass or infarct. Adrenal glands: Mild thickening of the LEFT adrenal gland. Right kidney: Cortical atrophy with numerous cysts. Largest cyst lower pole measures 4.7 x 5.3 cm. Left kidney: Numerous cystic masses. The largest exophytic from the lower pole measures 7.7 x 11.4 cm . No solid mass or obstruction. Aorta: Mild atherosclerosis with no aneurysm. Lymphadenopathy: None. Free fluid: None. GI tract: Normally distended stomach. No small bowel obstruction. Moderate constipation throughout th e colon with no obstructive pattern. Mild circumferential thickening involving the sigmoid colon with adjacent diverticula. No acute diverticulitis. Abdominal wall: Ventral abdominal wall hernia. Hernia contains fat only. Pelvis: Prior hysterectomy. Nondistended bladder. Bones: Slight increase in the lumbar lordosis. CT/CT abdomen pelvis w con* [id number] IMPRESSION: 1. No acute abdominal or pelvic abnormalities are identified. 2. Lobulated cystic mass in the pancreatic head is reidentified measuring 3.6 x 2.5 cm. Cystic mass has been present since 2019 with very mild slow increase in size. Favor serous cystadenoma. 3. Numerous bilateral renal cysts. 4. Prior cholecystectomy and hysterectomy. 5. Moderate diffuse constipation. No obstructive pattern. 6. Chronic sigmoid wall thickening with diverticular disease.
[2023-03-07] MEDS: iohexol 350 mg/mL 500 mL Btl (per mL) PO (10:39)
[2023-03-07] MEDS: iohexol 350 mg/mL 500 mL Btl (per mL) IV (10:39)
== END 2023-03-07 10:18 | disposition home or self-care (01) ==
LOC: RAD 10:18
PROVIDERS: PCP Family Medicine; Visit Provider Family Medicine
DX: K86.2 Cyst of pancreas (principal); R10.9 Unspecified abdominal pain
CPT/HCPCS: 74177; Q9967

== ENCOUNTER 2023-04-24 07:47 | Outpatient (CLI) | payer MEDICARE, OTHER, SELFPAY ==
[2023-04-24 08:07] VITALS: BMI 33.2
--- NOTE | 2023-04-24 08:15 | ECG_ITS ---
[facility] Test Date: 2023-04-24 Pat Name: Savannah Poon Department: Room: Gender: Female Customer Service And Sales Consultant: : 1945 Requested By: Geovany Prince Order Number: [id number] Letha MD: Brissa Leone M.D. Interpretive Statements NAME OF STUDY: LEXISCAN SESTAMIBI STRESS TEST INDICATION: Chest Pain, PROCEDURE: At the baseline, the EKG revealed sinus bradycardia with a sinus arrhythmia. 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 The baseline heart was 48 bpm with a blood pressue of 112/67 mm of Hg Lexiscan was infused over a period of 20 seconds. A total of 0.4 milligrams of Lexiscan was infused. The stress phase was continued for a total of 5 minutes. Heart rate at the end of the stress phase was 70 bpm with a blood pressure 106/60 mm of Hg. The EKG at the peak infusion revealed no significant changes. Sestamibi was injected 20 seconds after the Lexiscan infusion. Heart rate at the end of the recovery phase was 84 bpm with a blood pressure of 109/85 mm of Hg. CONCLUSION: 1. No significant EKG changes with the LexiScan infusion 2. No LexiScan induced chest pain or cardiac arrhythmia 3. Normal blood pressure and heart rate response 4. Sestamibi/sestamibi perfusion scan pending; see separate report. Electronically Signed On 04-25-2023 10:23:23 CDT by Brissa Leone M.D. [email or web address]
--- NOTE | 2023-04-24 08:16 | NMCV_ITS ---
NM maverick perf SPECT r/s* [id number] Savannah Poon Age: 77 Gender: F : 1945 Exam Date: 04/24/2023 08:16 Ordering Phys: Geovany Castelan MD Technologist: RENA Johnson Exam Location: [facility] Indications: CHEST PAIN STRESS TEST Please see separate stress test report in [facility] for full findings IMAGE PROTOCOL Rest/Stress 1 Lexiscan Day Radiopharmaceutical Dose (mCi) Administration Site Administered by Rest: Tc-99m 10.7 IV RENA Leonardo Sestamibi Stress:Tc-99m 33.0 IV RENA Leonardo Sestamibi Rest: 24-Apr-2023 60 Discovery 630 Stress: 24-Apr-2023 30 Discovery 630 0.4mg Lexiscan. Supine position only as patient was unable to lay prone. SPECT RESULTS Technical Quality: Good Raw Data Analysis: Normal Image Corrections: No attenuation or motion correction applied Summed Stress Score: 0 Summed Rest Score: 1 Summed Difference Score: 2 PERFUSION FINDINGS There is mild to moderate area of slightly decreased tracer uptake was noted in the mid inferolateral and mid inferior regions with some reversibility FUNCTIONAL RESULTS (calculated via Gated SPECT) Stress Image LV EF (%): 59 Stress EDV (mL):103 TID: 0.87 Stress ESV (mL):42 FUNCTIONAL FINDINGS: Segmental wall motion analysis revealing no gross wall motion abnormalities IMPRESSIONS 1. Myocardial perfusion imaging revealing small area of reversible defect involving the inferior and inferolateral region, suggesting ischemia in the distribution of the left circumflex/right coronary artery. 2. Normal LV ejection fraction of 59%. 3. LV wall motion analysis revealing no gross wall motion abnormalities. 4. Normal LV volume. No similar previous studies are available for comparison Dr Brissa Leone MD [facility] (Electronically Signed) Final Date: 24 April 2023 13:49 S
[2023-04-24] MEDS: regadenoson 0.4 Mg/5 ml Syringe IVP (09:47)
[2023-04-24] MEDS: ondansetron 2 mg/ML SDV 2 mL 4 MG IVP (09:58)
[2023-04-24 10:15] VITALS: BP 109/85; PULSE 60
== END 2023-04-24 07:48 | disposition home or self-care (01) ==
PROVIDERS: PCP Family Medicine; Visit Provider Family Medicine
DX: R07.9 Chest pain, unspecified (principal)
CPT/HCPCS: 36415; 78452; 93017; 96374; 96375; A9500; J2405; J2785

== ENCOUNTER → 2023-05-20 13:35 | Outpatient (BNVA) | payer MEDICARE, OTHER, SELFPAY | PROVIDERS: PCP Family Medicine; Visit Provider Internal Medicine Medical Oncology | DX: D47.2 Monoclonal gammopathy (principal) | CPT/HCPCS: 80053; 82728; 82784; 83550; 83883; 84155; 84156; 84165; 84166; 85025; 85651; 86038; 86140; 86431 ==

== ENCOUNTER 2023-06-05 09:00 | Oncology outpatient (recurring) (ONCR) | payer MEDICARE, OTHER, SELFPAY ==
[2023-06-05 09:24] VITALS: BP 137/78; PULSE 75; RESP 16; TEMP 36.3
[2023-06-05] MEDS: ferric carboxy (IVPB) 750 MG in sodium chloride 0.9% (100 ml) 100 ML 345 MG IV (09:48)
[2023-06-05 10:27] VITALS: BP 121/76; PULSE 76; RESP 16; TEMP 36.3; O2SAT 99
--- NOTE | 2023-06-09 10:41 | PC.NURSE ---
Patient received infusion of injectafer on 06/05/23. Patient called today stating that, arm has been red, itchy, and swollen since iron infusion last week . Patient was educated to go to the emergency department and verbalized understanding regarding this.
== END 2023-06-17 23:59 | disposition home or self-care (01) ==
PROVIDERS: PCP Family Medicine; Visit Provider Internal Medicine Medical Oncology
DX: D50.9 Iron deficiency anemia, unspecified (principal)
CPT/HCPCS: 80053; 82607; 82784; 83550; 84155; 84165; 85025; 85651; 86140; 86334; 96365; 99214; J1439

== ENCOUNTER 2023-06-10 12:41 | Emergency (ER) | payer MEDICARE, OTHER, SELFPAY ==
[2023-06-10 12:53] VITALS: BP 157/81; PULSE 63; RESP 18; TEMP 36.7; O2SAT 98; BMI 35.2
--- NOTE | 2023-06-10 13:04 | ED_ITS ---
HPI - Extremity Problem General: Chief complaint: Extremity Injury, Upper Stated complaint: rash Time Seen by Provider: 06/10/23 13:00 Source: patient Mode of arrival: ambulatory Limitations: no limitations History of Present Illness: 78-year-old female who states that she had an IV on to have an iron transfusion states that since then she has had some pain at the site with some erythema and some swelling states is actually improved she denies any other pains denies any swelling to her upper arm denies any shortness of breath Associated symptoms: Deny chest pain, fever(s) or rash Review of Systems Const: Denies: fever(s), chills, body aches or change in appetite Eyes: Denies: blurry vision or eye discomfort ENMT: Denies: throat pain or dental pain Card: Denies: chest pain Resp: Denies: dyspnea GI: Denies: abdominal pain, nausea, vomiting or diarrhea : Denies: dysuria Musc: Reports: extremity pain; Denies: neck pain or back pain Skin/Breast: Denies: rash Neuro: Denies: headache(s) PFSH ED PFSH: Medical History Breast cancer COPD (chronic obstructive pulmonary disease) 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 History of stroke (2018) Hypertension Iron deficiency anemia STEVEN (obstructive sleep apnea) Urgency incontinence Surgical History Hx of bilateral cataract extraction Hx of breast biopsy (11/12/17) Hx of cholecystectomy Hx of hysterectomy Hx of lumpectomy (12/24/17) Right breast lumpectomy with axillary sentinel lymph node biopsy Hx of tonsillectomy Family History Denies family history of Anesthesia complication Social History Smoking and tobacco/nicotine status: former use of tobacco/nicotine Quit status (tobacco/nicotine): has quit using Year quit tobacco: 2019 Former quit date comment: Smoked for 40 years Second hand smoke exposure: Yes Alcohol intake: former Substance/Drug Use: unknown Adopted: No Caregiver/support person: No Lives independently: Yes Marital status: / Current occupational status: retired Physical Exam Const: COMMON NORMALS: no acute distress, patient oriented x3 and healthy appearing HENMT: COMMON NORMALS: normocephalic and atraumatic HEAD & SCALP: normocephalic and atraumatic Eye: COMMON NORMALS: Equal, round and reactive pupils present and EOMs intact bilaterally PUPIL: Yes Equal, round and reactive pupils present Neck/C-Spine: COMMON NORMALS: full ROM and supple Chest: COMMONS NORMALS: normal inspection of the chest Resp: COMMON NORMALS: normal respiratory effort Cardio: COMMON NORMALS: regular rate, regular rhythm and No murmurs present (Cardio) RATE: regular rate RHYTHM: regular rhythm Extremity: COMMON NORMALS: full ROM NARRATIVE EXTREMITY EXAM: Tenderness over distal right arm likely a superficial thrombophlebitis distal pulses sensation intact no warmth to touch or cellulitis Neuro: COMMON NORMALS: patient oriented x3, moves all extremities and no focal motor deficits Psych: COMMON NORMALS: mental status grossly normal, Normal thought process present and cooperative THOUGHT PROCESS: Normal thought process present Skin: COMMON NORMALS: no rashes or lesions noted and no wounds GENERAL SKIN EXAM: no rashes or lesions noted Course Vital Signs: Vital signs: Vital Signs Temperature 98.1 F 06/10/23 12:53 Pulse Rate 63 06/10/23 12:53 Respiratory Rate 18 06/10/23 12:53 Blood Pressure 157/81 06/10/23 12:53 Pulse Oximetry 98 06/10/23 12:53 Oxygen Delivery Me thod Nasal Cannula 06/10/23 12:53 Oxygen Flow Rate 3 06/10/23 12:53 MDM - Extremity (Nontraumatic) Medical Decision Making Patient presents here with likely superficial thrombophlebitis from her IV placement she has no signs of DVT she states the swelling is actually went down as well she does take an aspirin daily she is to do warm compresses she is follow-up with PCP and return if worsening. Medical Records I reviewed the patient's medical records. No radiology studies performed this visit Discharge Plan Discharge Patient Disposition: Home Clinical Impression: Superficial thrombophlebitis Condition: Stable Prescriptions: No Action ondansetron HCl 4 mg tablet 4 mg PO Q6H PRN aspirin [Adult Low Dose Aspirin] 81 mg tablet,delayed release (DR/EC) 81 mg PO DAILY spironolactone 25 mg tablet 25 mg PO DAILY Qty: 30 3RF bumetanide 1 mg tablet 1 mg PO DAILY Qty: 30 3RF hydrochlorothiazide 25 mg tablet 25 mg PO DAILY Qty: 30 6RF cyclobenzaprine 10 mg tablet 10 mg PO TID PRN (Reason: muscle spasm) Qty: 30 0RF potassium chloride [Klor-Con 10] 10 mEq tablet extended release 10 meq PO DAILY gabapentin 100 mg capsule 100 mg PO DAILY PRN (Reason: Pain) Qty: 30 3RF albuterol sulfate 90 mcg/actuation HFA aerosol inhaler 2 inh INHALATION Q4H PRN (Reason: shortness of breath or wheezing) Qty: 18 11RF carvedilol 25 mg tablet 25 mg PO BID Qty: 180 3RF Rx Instructions: must administer with a meal/food Discharge Orders: Discharge ED (Routine); Ordered 06/10/23 Ordered By: Curt Munroe Referrals: Geovany Castelan MD [Primary Care Provider] - 1-3 days Discharge Diet: Advance as tolerated Discharge Activity: Resume usual activity Patient Instructions: Superficial Thrombophlebitis (ED) Coding Level of Care Code ED Director Information for Esha Sung
== END 2023-06-10 13:19 | disposition home or self-care (01) ==
PROVIDERS: Emergency Provider Emergency Medicine; PCP Family Medicine
DX: I80.8 Phlebitis and thrombophlebitis of other sites (principal); Z79.82 Long term (current) use of aspirin; Z85.3 Personal history of malignant neoplasm of breast; J44.9 Chronic obstructive pulmonary disease, unspecified; Z86.73 Personal history of transient ischemic attack (TIA), and cerebral infarction without residual deficits; I10 Essential (primary) hypertension; Z87.891 Personal history of nicotine dependence
CPT/HCPCS: 99282

== ENCOUNTER → 2024-04-08 11:08 | Outpatient (BNVA) | payer MEDICARE, OTHER, SELFPAY | PROVIDERS: PCP Family Medicine; Visit Provider Family Medicine | DX: Z51.81 Encounter for therapeutic drug level monitoring (principal); C50.411 Malignant neoplasm of upper-outer quadrant of right female breast; E53.8 Deficiency of other specified B group vitamins; D50.9 Iron deficiency anemia, unspecified; E55.9 Vitamin D deficiency, unspecified; R73.09 Other abnormal glucose | CPT/HCPCS: 80053; 82306; 82607; 83036; 83550; 83735; 84439; 84443; 85025; 86141 ==

== ENCOUNTER 2025-01-27 14:59 | Emergency (ER) | payer MEDICARE, OTHER, SELFPAY ==
--- NOTE | 2025-01-27 15:04 | XR_ITS ---
WS: [id number] Right foot, 3 views, 01/27/2025 Clinical Data: Right foot infection Comparison: None. Findings: No new fractures or dislocations are seen. No bone destruction or erosion is noted. The joint spaces are normal. There is soft tissue swelling over the dorsum of the foot. There is internal fixation of an old distal right tibial fracture. XR/XR foot RT min 3V* [id number] Impression: 1. Negative for bone destruction or erosion. 2. Soft tissue swelling over the dorsum of the foot.
[2025-01-27 15:09] VITALS: BP 141/68; PULSE 84; RESP 18; TEMP 36.5; O2SAT 95; BMI 34.9
[2025-01-27 16:20] LABS: Basophils % 0.4 %; Eosinophils # 0.7 10^3/uL (0.0-0.8); Eosinophils % 6.3 %; Hematocrit 37.3 % (36-47); Lymphocytes # 0.7 10^3/uL (0.8-4.8); Lymphocytes % 6.7 %; Mean Corpuscular HGB Conc 30.3 g/dL (30-55); Mean Corpuscular Hemoglobin 27.9 pg (27-33); Mean Corpuscular Volume 92.1 fl (85-98); Mean Platelet Volume 9.5 fL (7.4-10.4); Monocytes # 0.4 10^3/uL (0.2-0.9); Neutrophils # 8.44 10^3/uL (1.8-7.7); Neutrophils % 82.1 %; Nucleated Red Blood Cells % 0 %; Platelet Count 335 10^3/cmm (157-399); Red Blood Count 4.05 10^6/uL (3.85-5.65); Red Cell Distribution Width 13.5 % (12.1-15.1); White Blood Count 10.28 10^3/uL (3.29-11.43)
[2025-01-27 16:39] LABS: Alanine Aminotransferase 6 U/L (0-33); Albumin Level 3.6 g/dL (3.5-5.2); Alkaline Phosphatase 64 U/L (35-105); Anion Gap 15.8 (5-19); Aspartate Amino Transferase 14 U/L (0-32); Blood Urea Nitrogen 19 mg/dL (8-23); Calcium 8.8 mg/dL (8.5-10.5); Carbon Dioxide 31 mmol/L (22-29); Chloride 102 mmol/L (98-107); Globulin 3.2 g/dL (1.3-4.6); Glucose 154 mg/dL (65-115); Osmolality Calculated 305 mOsm/kg (285-295); Potassium 3.8 mmol/L (3.5-5.1); Sodium 145 mmol/L (136-145); Total Bilirubin 0.4 mg/dL (0.15-1.2); Total Protein 6.8 g/dL (6.6-8.7)
--- NOTE | 2025-01-27 17:31 | W.ED.SKABFB ---
Documented by User: Robert Bautista DO 01/28/25 07:21 HPI - Skin/Abscess/Foreign Bdy General: Chief complaint: Skin/Abscess/Foreign Body Stated complaint: abcess on right foot Time Seen by Provider: 01/27/25 17:12 History of Present Illness: 79-year-old female presents emergency room complaining of pain and swelling on her right foot on her ankle. Progressively worsening for the last 4 days increased swelling low-grade subjective temp at home. She has no history of diabetes. She has previously had an ORIF of the right ankle still has retained hardware. The swelling is led to some vesicle formation with clear serous drainage. She still is able to ambulate. She has some significant disc increasing discomfort in the right ankle with ambulation. No vomiting no diarrhea no chest pain no shortness of breath. 79-year-old female, Savannah Poon, presenting with concerns of possible right foot infection. Patient reports redness, swelling, and pain in the right foot and lower leg. She describes the affected area as feeling feverish and states it is very painful and hard to walk on. Patient denies any previous history of lower extremity infections or cellulitis, stating I've not had this type of thing before. Patient expresses significant concern about potentially losing my foot because this has been going on for a while. She reports attempting to schedule an appointment with her primary care physician but was unable to be seen until next , prompting today's ED visit. Associated symptoms: Deny chills or fever(s) Related Data Home Medications ?Medication ?Instructions ?Recorded ?Confirmed aspirin 81 mg tablet,delayed 81 mg PO DAILY 04/07/20 06/21/24 release (Adult Low Dose Aspirin) ondansetron HCl 4 mg tablet 4 mg PO Q6H PRN 04/13/20 06/21/24 potassium chloride 10 mEq 10 meq PO DAILY 06/03/22 06/21/24 tablet,extended release (Klor-Con) Previous Rx's ?Medication ?Instructions ?Recorded gabapentin 100 mg capsule 100 mg PO DAILY PRN Pain #30 caps 09/12/22 Oxygen concentrator and tanks #1 ea 08/20/23 carvedilol 25 mg tablet 25 mg PO BID #180 tabs 04/07/24 hydrochlorothiazide 25 mg tablet 25 mg PO DAILY #90 tabs 04/07/24 azithromycin 250 mg tablet See Rx Instructions PO .COMPLEX #6 04/08/24 tabs cholecalciferol (vitamin D3) 50 50 mcg PO DAILY #30 caps 04/23/24 mcg (2,000 unit) capsule cyanocobalamin (vitamin B-12) 1,000 mcg PO DAILY #30 tabs 04/23/24 1,000 mcg tablet (Vitamin B-12) bumetanide 1 mg tablet 1 mg PO DAILY #90 tabs 05/28/24 cyclobenzaprine 10 mg tablet 10 mg PO TID PRN muscle spasm #30 05/28/24 tabs levofloxacin 500 mg tablet 500 mg PO DAILY #10 tabs 05/28/24 prednisone 20 mg tablet 20 mg PO DAILY #5 tabs 05/28/24 spironolactone 25 mg tablet 25 mg PO DAILY #30 tabs 05/28/24 hydrocodone 5 mg-acetaminophen 325 1 tab PO BID PRN pain 15 days #30 08/24/24 mg tablet tabs albuterol sulfate 90 mcg/actuation 2 inh inhalation Q4H PRN shortness 12/22/24 aerosol inhaler of breath or wheezing #18 grams cephalexin 500 mg capsule 500 mg PO TID 7 days #21 caps 01/27/25 naproxen 500 mg tablet (Naprosyn) 500 mg PO Q12H PRN pain #20 tabs 01/27/25 Allergies Allergy/AdvReac Type Severity Reaction Status Date / Time codeine Allergy Unknown Unknown Verified 01/27/25 20:54 Penicillins Allergy Unknown Unknown Verified 01/27/25 20:54 Review of Systems Const: Denies: fever(s) or chills Card: Denies: chest pain Resp: Denies: dyspnea GI: Denies: abdominal pain : Denies: dysuria, urinary frequency or urinary urgency Musc: Denies: neck pain or back pain Skin/Breast: Denies: rash PFSH ED PFSH: Medical History Iron deficiency anemia Cystic mass of pancreas Hypertension Breast cancer History of stroke (2019) Degenerative joint disease of spine STEVEN (obstructive sleep apnea) COPD (chronic obstructive pulmonary disease) Urgency incontinence Surgical History Hx of bilateral cataract extraction Hx of tonsillectomy Hx of breast biopsy (11/12/17) Hx of cholecystectomy Hx of lumpectomy (12/24/17) Right breast lumpectomy with axillary sentinel lymph node biopsy Hx of hysterectomy Family History Denies family history of Anesthesia complication Social History Smoking and tobacco/nicotine status: never used tobacco/nicotine Quit status (tobacco/nicotine): has quit using Year quit tobacco: 2018 Former quit date comment: Smoked for 40 years Second hand smoke exposure: Yes Alcohol intake: former Substance/Drug Use: unknown Adopted: No Caregiver/support person: No Lives independently: Yes Marital status: / Current occupational status: retired Physical Exam Const: GENERAL APPEARANCE: cooperative ORIENTATION/CONSCIOUSNESS: Yes awake, Yes oriented to person, Yes oriented to place and Yes oriented to time HENMT: COMMON NORMALS: normocephalic, atraumatic and hearing grossly normal bilaterally HEAD & SCALP: normocephalic and atraumatic Resp: COMMON NORMALS: normal respiratory effort, No retractions, No use of accessory muscles and clear to auscultation bilaterally AUSCULTATION: clear to auscultation bilaterally Cardio: COMMON NORMALS: regular rate, regular rhythm and No murmurs present (Cardio) RATE: regular rate RHYTHM: regular rhythm GI: COMMON NORMALS: Soft to palpation and No hepatosplenomegaly present AUSCULTATION: Yes normoactive bowel sounds PALPATION: Yes Soft to palpation, No Tenderness to palpation present (GI), No Guarding due to palpation present (GI) and Yes No hepatosplenomegaly present Extremity: COMMON NORMALS: normal to inspection, capillary refill normal, no clubbing, cyanosis or edema, no calf tenderness and no pedal edema Neuro: SENSORIUM/ORIENTATION: Yes oriented to person, Yes oriented to place and Yes oriented to time Skin: COMMON NORMALS: no rashes or lesions noted GENERAL SKIN EXAM: no rashes or lesions noted Course Vital Signs: Vital signs: Vital Signs Temperature 97.7 F 01/27/25 15:09 Pulse Rate 74 01/27/25 21:32 Respiratory Rate 18 01/27/25 15:09 Blood Pressure 161/105 01/27/25 21:32 Pulse Oximetry 99 01/27/25 21:32 Oxygen Delivery Me thod Nasal Cannula 01/27/25 20:08 Oxygen Flow Rate 4 01/27/25 20:08 MDM - Skin/Abscess/Foreign Bdy Medicial Decision Making Care signed out to Dr. Kang at change of shift. See final notes for diagnosis and disposition. 1. Right Foot Cellulitis - Patient presents with clinical findings consistent with cellulitis including erythema, warmth, and pain - No evidence of osteomyelitis on X-ray or deep vein thrombosis on ultrasound - Normal WBC count suggests early or contained infection - Initial IV antibiotic administered in ED - Plan: Prescribe oral antibiotics for 7-10 day course - Patient instructed to elevate affected extremity and limit weight-bearing - Short-term pain medication prescribed for symptomatic relief 2. Follow-up Plan - Patient to follow up with PCP next (already scheduled) - Advised to return to ED if symptoms worsen or fail to improve within 48 hours - Anticipate gradual improvement over next 5-7 days with appropriate antibiotic therapy - All diagnostic information to be forwarded to patient's primary care physician 3. Patient Education - Discussed importance of early intervention for future skin infections - Reassured patient that with appropriate treatment, risk of serious complications is low - Emphasized importance of medication adherence and follow-up care Lab Data 01/27/25 16:03 01/27/25 16:03 Radiology Impressions Foot X-Ray 01/27/25 15:04 Impression: 1. Negative for bone destruction or erosion. 2. Soft tissue swelling over the dorsum of the foot. Venous Duplex 01/27/25 17:43 IMPRESSION: No sonographic evidence of deep vein thrombosis. Laboratory Results WBC 10.28 10^3/uL (3.29-11.43) 01/27/25 16:03 RBC 4.05 10^6/uL (3.85-5.65) 01/27/25 16:03 Hgb 11.30 g/dL (11.27-16.99) 01/27/25 16:03 Hct 37.3 % (36-47) 01/27/25 16:03 MCV 92.1 fl (85-98) 01/27/25 16:03 MCH 27.9 pg (27-33) 01/27/25 16:03 MCHC 30.3 g/dL (30-55) 01/27/25 16:03 RDW 13.5 % (12.1-15.1) 01/27/25 16:03 Plt Count 335 10^3/cmm (157-399) 01/27/25 16:03 MPV 9.5 fL (7.4-10.4) 01/27/25 16:03 Neut % (Auto) 82.1 % 01/27/25 16:03 Lymph % (Auto) 6.7 % 01/27/25 16:03 Billings % (Auto) 4.0 % 01/27/25 16:03 Eos % (Auto) 6.3 % 01/27/25 16:03 Baso % (Auto) 0.4 % 01/27/25 16:03 Neut # (Auto) 8.44 10^3/uL (1.8-7.7) H 01/27/25 16:03 Lymph # (Auto) 0.7 10^3/uL (0.8-4.8) L 01/27/25 16:03 Bill[place] # (Auto) 0.4 10^3/uL (0.2-0.9) 01/27/25 16:03 Eos # (Auto) 0.7 10^3/uL (0.0-0.8) 01/27/25 16:03 Baso # (Auto) 0.0 10^3/uL (0.0-0.1) 01/27/25 16:03 Nucleated RBC % (auto) 0 % 01/27/25 16:03 Nucleated RBCs # 0.0 /100WBC 01/27/25 16:03 Sodium 145 mmol/L (136-145) 01/27/25 16:03 Potassium 3.8 mmol/L (3.5-5.1) 01/27/25 16:03 Chloride 102 mmol/L (98-107) 01/27/25 16:03 Carbon Dioxide 31 mmol/L (22-29) H 01/27/25 16:03 Anion Gap 15.8 (5-19) 01/27/25 16:03 BUN 19 mg/dL (8-23) 01/27/25 16:03 Creatinine 1.2 mg/dL (0.5-0.9) H 01/27/25 16:03 GFR Calculation Not Reportable 01/27/25 16:03 Glucose 154 mg/dL (65-115) H 01/27/25 16:03 Calculated Osmolality 305 mOsm/kg (285-295) H 01/27/25 16:03 Calcium 8.8 mg/dL (8.5-10.5) 01/27/25 16:03 Total Bilirubin 0.4 mg/dL (0.15-1.2) 01/27/25 16:03 AST 14 U/L (0-32) 01/27/25 16:03 ALT 6 U/L (0-33) 01/27/25 16:03 Alkaline Phosphatase 64 U/L (35-105) 01/27/25 16:03 C-Reactive Protein 29.3 mg/L (0.0-4.9) H 01/27/25 16:03 Total Protein 6.8 g/dL (6.6-8.7) 01/27/25 16:03 Albumin 3.6 g/dL (3.5-5.2) 01/27/25 16:03 Globulin 3.2 g/dL (1.3-4.6) 01/27/25 16:03 Discharge Plan Discharge Patient Disposition: Home Clinical Impression: Cellulitis Qualifiers: Site of cellulitis: extremity Site of cellulitis of extremity: lower extremity Laterality: right Qualified Code(s): L03.115 - Cellulitis of right lower limb Condition: Stable Prescriptions: New cephalexin 500 mg capsule 500 mg PO TID 7 Days Qty: 21 0RF naproxen [Naprosyn] 500 mg tablet 500 mg PO Q12H PRN (Reason: pain) Qty: 20 0RF No Action ondansetron HCl 4 mg tablet 4 mg PO Q6H PRN aspirin [Adult Low Dose Aspirin] 81 mg tablet,delayed release (DR/EC) 81 mg PO DAILY azithromycin 250 mg tablet See Rx Instructions PO .COMPLEX Qty: 6 0RF Rx Instructions: For 250 mg dose pack: take 500 mg today (day 1), then 250 mg for 4 days (days 2-5) PO bumetanide 1 mg tablet 1 mg PO DAILY Qty: 90 3RF cyclobenzaprine 10 mg tablet 10 mg PO TID PRN (Reason: muscle spasm) Qty: 30 0RF spironolactone 25 mg tablet 25 mg PO DAILY Qty: 30 6RF levofloxacin 500 mg tablet 500 mg PO DAILY Qty: 10 0RF prednisone 20 mg tablet 20 mg PO DAILY Qty: 5 0RF potassium chloride [Klor-Con 10] 10 mEq tablet extended release 10 meq PO DAILY gabapentin 100 mg capsule 100 mg PO DAILY PRN (Reason: Pain) Qty: 30 3RF (DME) Oxygen concentrator and tanks See Rx Instructions .Route .MEDSUPPLY Qty: 1 0RF Rx Instructions: As directed carvedilol 25 mg tablet 25 mg PO BID Qty: 180 3RF Rx Instructions: must administer with a meal/food hydrochlorothiazide 25 mg tablet 25 mg PO DAILY Qty: 90 3RF cholecalciferol (vitamin D3) 50 mcg (2,000 unit) capsule 50 mcg PO DAILY Qty: 30 6RF cyanocobalamin (vitamin B-12) [Vitamin B-12] 1,000 mcg tablet 1,000 mcg PO DAILY Qty: 30 6RF hydrocodone-acetaminophen 5-325 mg tablet 1 tab PO BID PRN (Reason: pain) 15 Days Qty: 30 0RF albuterol sulfate 90 mcg/actuation HFA aerosol inhaler 2 inh INHALATION Q4H PRN (Reason: shortness of breath or wheezing) Qty: 18 11RF Discharge Orders: Discharge ED (Routine); Ordered 01/27/25 Ordered By: Laz Kang Referrals: Geovany Castelan MD [Primary Care Provider, [facility]] Discharge Diet: Advance as tolerated Discharge Activity: Resume usual activity Patient Instructions: Opioid Safety, Pain Management Activity Restrictions/Additional Instructions: 1. Take prescription as directed. Rest and elevate leg. 2. Follow-up with primary care next week. 3. Return to the emergency department for new or worsening symptoms. Print Language: Greek Coding Level of Care Code ED Roof Technician for Chg Fwd Documented by User: Laz Kang DO 01/27/25 21:17 HPI - Skin/Abscess/Foreign Bdy General: Chief complaint: Skin/Abscess/Foreign Body Stated complaint: abcess on right foot Time Seen by Provider: 01/27/25 17:12 History of Present Illness: 79-year-old female, Savannah Poon, presenting with concerns of possible right foot infection. Patient reports redness, swelling, and pain in the right foot and lower leg. She describes the affected area as feeling feverish and states it is very painful and hard to walk on. Patient denies any previous history of lower extremity infections or cellulitis, stating I've not had this type of thing before. Patient expresses significant concern about potentially losing my foot because this has been going on for a while. She reports attempting to schedule an appointment with her primary care physician but was unable to be seen until next , prompting today's ED visit. Related Data Home Medications ?Medication ?Instructions ?Recorded ?Confirmed aspirin 81 mg tablet,delayed 81 mg PO DAILY 04/07/20 06/21/24 release (Adult Low Dose Aspirin) ondansetron HCl 4 mg tablet 4 mg PO Q6H PRN 04/13/20 06/21/24 potassium chloride 10 mEq 10 meq PO DAILY 06/03/22 06/21/24 tablet,extended release (Klor-Con) Previous Rx's ?Medication ?Instructions ?Recorded gabapentin 100 mg capsule 100 mg PO DAILY PRN Pain #30 caps 09/12/22 Oxygen concentrator and tanks #1 ea 08/20/23 carvedilol 25 mg tablet 25 mg PO BID #180 tabs 04/07/24 hydrochlorothiazide 25 mg tablet 25 mg PO DAILY #90 tabs 04/07/24 azithromycin 250 mg tablet See Rx Instructions PO .COMPLEX #6 04/08/24 tabs cholecalciferol (vitamin D3) 50 50 mcg PO DAILY #30 caps 04/23/24 mcg (2,000 unit) capsule cyanocobalamin (vitamin B-12) 1,000 mcg PO DAILY #30 tabs 04/23/24 1,000 mcg tablet (Vitamin B-12) bumetanide 1 mg tablet 1 mg PO DAILY #90 tabs 05/28/24 cyclobenzaprine 10 mg tablet 10 mg PO TID PRN muscle spasm #30 05/28/24 tabs levofloxacin 500 mg tablet 500 mg PO DAILY #10 tabs 05/28/24 prednisone 20 mg tablet 20 mg PO DAILY #5 tabs 10/11/24 spironolactone 25 mg tablet 25 mg PO DAILY #30 tabs 05/28/24 hydrocodone 5 mg-acetaminophen 325 1 tab PO BID PRN pain 15 days #30 08/24/24 mg tablet tabs albuterol sulfate 90 mcg/actuation 2 inh inhalation Q4H PRN shortness 12/22/24 aerosol inhaler of breath or wheezing #18 grams cephalexin 500 mg capsule 500 mg PO TID 7 days #21 caps 01/27/25 naproxen 500 mg tablet (Naprosyn) 500 mg PO Q12H PRN pain #20 tabs 01/27/25 Allergies Allergy/AdvReac Type Severity Reaction Status Date / Time codeine Allergy Unknown Unknown Verified 01/27/25 20:54 Penicillins Allergy Unknown Unknown Verified 01/27/25 20:54 Review of Systems General: Reports: 10 or more systems reviewed and unremarkable except in HPI and below PFSH ED PFSH: Medical History Iron deficiency anemia Cystic mass of pancreas Hypertension Breast cancer History of stroke (2018) Degenerative joint disease of spine STEVEN (obstructive sleep apnea) COPD (chronic obstructive pulmonary disease) Urgency incontinence Surgical History Hx of bilateral cataract extraction Hx of tonsillectomy Hx of breast biopsy (11/12/17) Hx of cholecystectomy Hx of lumpectomy (12/24/17) Right breast lumpectomy with axillary sentinel lymph node biopsy Hx of hysterectomy Family History Denies family history of Anesthesia complication Social History Smoking and tobacco/nicotine status: never used tobacco/nicotine Quit status (tobacco/nicotine): has quit using Year quit tobacco: 2019 Former quit date comment: Smoked for 40 years Second hand smoke exposure: Yes Alcohol intake: former Substance/Drug Use: unknown Adopted: No Caregiver/support person: No Lives independently: Yes Marital status: / Current occupational status: retired Course Vital Signs: Vital signs: Vital Signs Temperature 97.7 F 01/27/25 15:09 Pulse Rate 74 01/27/25 21:32 Respiratory Rate 18 01/27/25 15:09 Blood Pressure 161/105 01/27/25 21:32 Pulse Oximetry 99 01/27/25 21:32 Oxygen Delivery Me thod Nasal Cannula 01/27/25 20:08 Oxygen Flow Rate 4 01/27/25 20:08 MDM - Skin/Abscess/Foreign Bdy Medicial Decision Making 1. Right Foot Cellulitis - Patient presents with clinical findings consistent with cellulitis including erythema, warmth, and pain - No evidence of osteomyelitis on X-ray or deep vein thrombosis on ultrasound - Normal WBC count suggests early or contained infection - Initial IV antibiotic administered in ED - Plan: Prescribe oral antibiotics for 7-10 day course - Patient instructed to elevate affected extremity and limit weight-bearing - Short-term pain medication prescribed for symptomatic relief 2. Follow-up Plan - Patient to follow up with PCP next (already scheduled) - Advised to return to ED if symptoms worsen or fail to improve within 48 hours - Anticipate gradual improvement over next 5-7 days with appropriate antibiotic therapy - All diagnostic information to be forwarded to patient's primary care physician 3. Patient Education - Discussed importance of early intervention for future skin infections - Reassured patient that with appropriate treatment, risk of serious complications is low - Emphasized importance of medication adherence and follow-up care Lab Data 01/27/25 16:03 01/27/25 16:03 Radiology Impressions Foot X-Ray 01/27/25 15:04 Impression: 1. Negative for bone destruction or erosion. 2. Soft tissue swelling over the dorsum of the foot. Venous Duplex 01/27/25 17:43 IMPRESSION: No sonographic evidence of deep vein thrombosis. Laboratory Results WBC 10.28 10^3/uL (3.29-11.43) 01/27/25 16:03 RBC 4.05 10^6/uL (3.85-5.65) 01/27/25 16:03 Hgb 11.30 g/dL (11.27-16.99) 01/27/25 16:03 Hct 37.3 % (36-47) 01/27/25 16:03 MCV 92.1 fl (85-98) 01/27/25 16:03 MCH 27.9 pg (27-33) 01/27/25 16:03 MCHC 30.3 g/dL (30-55) 01/27/25 16:03 RDW 13.5 % (12.1-15.1) 01/27/25 16:03 Plt Count 335 10^3/cmm (157-399) 01/27/25 16:03 MPV 9.5 fL (7.4-10.4) 01/27/25 16:03 Neut % (Auto) 82.1 % 01/27/25 16:03 Lymph % (Auto) 6.7 % 01/27/25 16:03 Bill[place] % (Auto) 4.0 % 01/27/25 16:03 Eos % (Auto) 6.3 % 01/27/25 16:03 Baso % (Auto) 0.4 % 01/27/25 16:03 Neut # (Auto) 8.44 10^3/uL (1.8-7.7) H 01/27/25 16:03 Lymph # (Auto) 0.7 10^3/uL (0.8-4.8) L 01/27/25 16:03 [place] # (Auto) 0.4 10^3/uL (0.2-0.9) 01/27/25 16:03 Eos # (Auto) 0.7 10^3/uL (0.0-0.8) 01/27/25 16:03 Baso # (Auto) 0.0 10^3/uL (0.0-0.1) 01/27/25 16:03 Nucleated RBC % (auto) 0 % 01/27/25 16:03 Nucleated RBCs # 0.0 /100WBC 01/27/25 16:03 Sodium 145 mmol/L (136-145) 01/27/25 16:03 Potassium 3.8 mmol/L (3.5-5.1) 01/27/25 16:03 Chloride 102 mmol/L (98-107) 01/27/25 16:03 Carbon Dioxide 31 mmol/L (22-29) H 01/27/25 16:03 Anion Gap 15.8 (5-19) 01/27/25 16:03 BUN 19 mg/dL (8-23) 01/27/25 16:03 Creatinine 1.2 mg/dL (0.5-0.9) H 01/27/25 16:03 GFR Calculation Not Reportable 01/27/25 16:03 Glucose 154 mg/dL (65-115) H 01/27/25 16:03 Calculated Osmolality 305 mOsm/kg (285-295) H 01/27/25 16:03 Calcium 8.8 mg/dL (8.5-10.5) 01/27/25 16:03 Total Bilirubin 0.4 mg/dL (0.15-1.2) 01/27/25 16:03 AST 14 U/L (0-32) 01/27/25 16:03 ALT 6 U/L (0-33) 01/27/25 16:03 Alkaline Phosphatase 64 U/L (35-105) 01/27/25 16:03 C-Reactive Protein 29.3 mg/L (0.0-4.9) H 01/27/25 16:03 Total Protein 6.8 g/dL (6.6-8.7) 01/27/25 16:03 Albumin 3.6 g/dL (3.5-5.2) 01/27/25 16:03 Globulin 3.2 g/dL (1.3-4.6) 01/27/25 16:03 All radiology interpretation(s) finalized by discharge Discharge Plan Discharge Patient Disposition: Home Clinical Impression: Cellulitis Qualifiers: Site of cellulitis: extremity Site of cellulitis of extremity: lower extremity Laterality: right Qualified Code(s): L03.115 - Cellulitis of right lower limb Condition: Stable Prescriptions: New cephalexin 500 mg capsule 500 mg PO TID 7 Days Qty: 21 0RF naproxen [Naprosyn] 500 mg tablet 500 mg PO Q12H PRN (Reason: pain) Qty: 20 0RF No Action ondansetron HCl 4 mg tablet 4 mg PO Q6H PRN aspirin [Adult Low Dose Aspirin] 81 mg tablet,delayed release (DR/EC) 81 mg PO DAILY azithromycin 250 mg tablet See Rx Instructions PO .COMPLEX Qty: 6 0RF Rx Instructions: For 250 mg dose pack: take 500 mg today (day 1), then 250 mg for 4 days (days 2-5) PO bumetanide 1 mg tablet 1 mg PO DAILY Qty: 90 3RF cyclobenzaprine 10 mg tablet 10 mg PO TID PRN (Reason: muscle spasm) Qty: 30 0RF spironolactone 25 mg tablet 25 mg PO DAILY Qty: 30 6RF levofloxacin 500 mg tablet 500 mg PO DAILY Qty: 10 0RF prednisone 20 mg tablet 20 mg PO DAILY Qty: 5 0RF potassium chloride [Klor-Con 10] 10 mEq tablet extended release 10 meq PO DAILY gabapentin 100 mg capsule 100 mg PO DAILY PRN (Reason: Pain) Qty: 30 3RF (DME) Oxygen concentrator and tanks See Rx Instructions .Route .MEDSUPPLY Qty: 1 0RF Rx Instructions: As directed carvedilol 25 mg tablet 25 mg PO BID Qty: 180 3RF Rx Instructions: must administer with a meal/food hydrochlorothiazide 25 mg tablet 25 mg PO DAILY Qty: 90 3RF cholecalciferol (vitamin D3) 50 mcg (2,000 unit) capsule 50 mcg PO DAILY Qty: 30 6RF cyanocobalamin (vitamin B-12) [Vitamin B-12] 1,000 mcg tablet 1,000 mcg PO DAILY Qty: 30 6RF hydrocodone-acetaminophen 5-325 mg tablet 1 tab PO BID PRN (Reason: pain) 15 Days Qty: 30 0RF albuterol sulfate 90 mcg/actuation HFA aerosol inhaler 2 inh INHALATION Q4H PRN (Reason: shortness of breath or wheezing) Qty: 18 11RF Discharge Orders: Discharge ED (Routine); Ordered 01/27/25 Ordered By: Laz Kang Referrals: Geovany Castelan MD [Primary Care Provider, [facility]] Discharge Diet: Advance as tolerated Discharge Activity: Resume usual activity Patient Instructions: Opioid Safety, Pain Management Activity Restrictions/Additional Instructions: 1. Take prescription as directed. Rest and elevate leg. 2. Follow-up with primary care next week. 3. Return to the emergency department for new or worsening symptoms. Print Language: Greek Coding Level of Care Code ED Roof Technician for Esha Sung
[2025-01-27 17:40] VITALS: BP 134/112; PULSE 78; O2SAT 98
[2025-01-27 17:41] LABS: C Reactive Protein 29.3 mg/L (0.0-4.9)
--- NOTE | 2025-01-27 17:43 | USR_ITS ---
PROCEDURE INFORMATION: Exam: US Duplex Right Lower Extremity Veins, Limited Exam date and time: 01/27/2025 6:09 PM Age: 79 years old Clinical indication: Swelling (edema) of limb; Lower extremity, left; Additional info: Leg swelling TECHNIQUE: Imaging protocol: Real-time duplex ultrasound of the right extremity with 2-D mendiola scale, color Doppler flow and spectral waveform analysis including responses to compression and other maneuvers (when performed) with image documentation. Limited exam was focused on the right lower extremity veins. COMPARISON: US renal BI* [id number] 03/08/2020 12:42 PM FINDINGS: Right deep veins: Unremarkable. The common femoral, femoral, proximal profunda femoral, popliteal, posterior tibial and peroneal veins are patent without thrombus. Normal Doppler waveforms. Normal compressibility and/or augmentation response. Superficial veins: Greater saphenous vein at the saphenofemoral junction is patent without thrombus. Soft tissues: Unremarkable. US/[place] [id number] IMPRESSION: No sonographic evidence of deep vein thrombosis.
--- NOTE | 2025-01-27 17:44 | PC.NURSE ---
THIS NURSE WENT INTO PT ROOM TO ASSESS THE PT. THIS NURSE NOTICED THAT PT DID NOT HAVE BLOOD PRESSURE CUFF ON. THIS NURSE INFORMED PT THAT A BLOOD PRESSURE NEEDED TO BE TAKEN. PT AGREED TO BLOOD PRESSURE BEING HOOKED UP. THIS NURSE PLACED BLOOD PRESSURE CUFF ON AND STARTED THE MACHINE. PT BEGAN TO GET UPSET AND STATED THIS THING IS TOO TIGHT. IF IT PUMPS UP A 3RD TIME, I AM TAKING IT OFF. YOU ARE NOT GOING TO DO THIS TO ME. THIS NURSE EDUCATED PT THAT A BLOOD PRESSURE NEEDED TO BE OBTAINED AND IT NEEDED TO BE MONITORED IN THE ER. PT STATED WELL DON'T YOU KNOW HOW TO TAKE ONE? DID YOU LEARN THAT IN SCHOOL OR DID THEY JUST SKIP THAT WITH YOU? THIS NURSE INFORMED PT THAT ALL SHE WAS TRYING TO TAKE CARE OF HER AND THAT SHE WOULD NOT SPEAK TO THE NURSE THAT WAY. PT DID NOT ANSWER. BLOOD PRESSURE WAS ABLE TO BE OBTAINED.
[2025-01-27] MEDS: linezolid premix 600 MG/300 ML PREMIX 300 MG IV (18:05)
[2025-01-27 18:30] VITALS: BP 168/75; PULSE 79; O2SAT 99
[2025-01-27 19:13] VITALS: BP 152/61; PULSE 72; O2SAT 100
[2025-01-27 20:08] VITALS: BP 169/77; PULSE 72; O2SAT 99
[2025-01-27] MEDS: ketorolac 30 mg/mL INJ 15 MG IVP (20:57)
[2025-01-27 21:32] VITALS: BP 161/105; PULSE 74; O2SAT 99
== END 2025-01-27 21:36 | disposition home or self-care (01) ==
PROVIDERS: Emergency Provider Family Medicine; PCP Family Medicine
DX: L03.115 Cellulitis of right lower limb (principal); Z79.82 Long term (current) use of aspirin; I10 Essential (primary) hypertension; J44.9 Chronic obstructive pulmonary disease, unspecified; G47.33 Obstructive sleep apnea (adult) (pediatric); Z86.73 Personal history of transient ischemic attack (TIA), and cerebral infarction without residual deficits; Z87.891 Personal history of nicotine dependence
CPT/HCPCS: 36415; 73630; 80053; 85025; 86140; 87040; 93971; 96365; 96366; 96375; 99284; J1885; J2020

== ENCOUNTER 2025-03-03 01:03 | Emergency (ER) | payer MEDICARE, OTHER, SELFPAY ==
[2025-03-03 01:08] VITALS: BP 129/75; PULSE 85; RESP 18; TEMP 36.4; O2SAT 92; BMI 34.3
--- OUTSIDE RECORDS SUMMARY | 2025-03-03 01:10 | XMS_ITS | Clinical Summary ---
Author Organization [facility] field Address [address] [place] [address] Phone Care Team Providers Care Hvac Engineering Technician Name Role Phone Geovany Castelan MD Primary Care Provider [phone] Allergies Active Allergy Reactions Criticality Noted Date Comments Codeine Hives High 12/10/2018 Latex Rash Low 12/10/2018 Penicillins Unknown 12/10/2018 Medications simvastatin (ZOCOR) 40 mg tablet Take 40 mg by mouth daily with supper . 11/18/2018 Active lisinopril (PRINIVIL) 20 mg tablet Take 20 mg by mouth 2 times daily . 11/18/2018 Active metoprolol tartrate (LOPRESSOR) 50 mg tablet Take 50 mg by mouth 2 times daily . 11/18/2018 Active amLODIPine (NORVASC) 5 mg tablet Take 5 mg by mouth 2 times daily . 11/18/2018 Active hydroCHLOROthiaz justo 25 mg tablet Take 25 mg by mouth daily . 11/18/2018 Active aspirin (ECOTRIN EC) 81 mg Tablet, Delayed Release (E.C.) Take 81 mg by mouth daily. Active Active Problems No known active problems Family History Medical History Relation Name Comments Colon Cancer Neg Hx Social History Tobacco Use Types Packs/Day Years Used Date Smoking Tobacco: Every Day Cigarettes Smokeless Tobacco: Never Alcohol Use Standard Drinks/Week Comments Not Currently 0 (1 standard drink = 0.6 oz pur e alcohol) Comments Unknown Sex and Gender Information Value Date Recorded Sex Assigned at Not on file Legal Sex Female 9:36 AM CDT Gender Identity Not on file Sexual Orientation Not on file Last Filed Vital Signs Vital Sign Reading Time Taken Comments Blood Pressure 134/86 12/21/2018 11:19 AM CDT Pulse 53 12/21/2018 11:19 AM CDT Temperature 36.3 C (97.3 F) 12/21/2018 10:00 AM CDT Respiratory Rate 18 12/21/2018 11:19 AM CDT Oxygen Saturation 95% 12/21/2018 11:19 AM CDT Inhaled Oxygen Concentration - - Weight 95.3 kg (210 lb) 12/10/2018 4:17 PM CDT Height 170.2 cm (5' 7 ) 12/10/2018 4:17 PM CDT Body Mass Index 32.89 12/10/2018 4:17 PM CDT Plan of Treatment Health Maintenance Due Date Last Done Comments DTAP/TDAP/TD VACCINES (1 - Tdap) 1966 PNEUMOCOCCAL VACCINE 50+ YEARS (1 of 2 - PCV) 04/26/19 66 ZOSTER VACCINE (1 of 2) 1997 OSTEOPOROSIS SCREENING 2012 RSV VACCINE (60+ or ) (1 - 1-dose 75+ series) 2022 INFLUENZA VACCINE (#1) 2025 Insurance MEDICARE PART A AND B [employer] Advance Directives For more information, please contact: [phone] * Full Code (Latest Code Status on File) Date Activated Date Inactivated Comments 12/21/2018 9:43 AM 12/21/2018 1:41 PM Care Teams Hvac Engineering Technician Relationship Specialty Start Date End Date Geovany Castelan MD [address] [place] [id number] PCP - General Family Practice 11/27/18
--- OUTSIDE RECORDS SUMMARY | 2025-03-03 01:10 | XMS_ITS | Clinical Summary ---
Author Organization [employer] Address [address] [facility] Attn: Epic Prelude ADT THALIA MARI [address] Care Team Providers Care Chemical Test Engineer Name Role Phone Geovany Castelan MD Primary Care Provider [phone] Allergies Active Allergy Reactions Criticality Noted Date Comments Codeine Hives High 12/10/2018 Latex Rash Low 12/10/2018 Penicillins Unknown 12/10/2018 Medications metoprolol tartrate (LOPRESSOR) 50 mg tablet Take 50 mg by mouth 2 times daily . 11/18/2018 Active simvastatin (ZOCOR) 40 mg tablet Take 40 mg by mouth daily with supper . 11/18/2018 Active amLODIPine (NORVASC) 5 mg tablet Take 5 mg by mouth 2 times daily . 11/18/2018 Active lisinopriL (PRINIVIL) 20 mg tablet Take 20 mg by mouth 2 times daily . 11/18/2018 Active hydroCHLOROthiaz justo 25 mg tablet Take 25 mg by mouth daily . 11/18/2018 Active aspirin (ECOTRIN EC) 81 mg Tablet, Delayed Release (E.C.) Take 81 mg by mouth daily. 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 Gender Identity Not on file Sexual Orientation Not on file Last Filed Vital Signs Vital Sign Reading Time Taken Comments Blood Pressure 134/86 12/21/2018 11:19 AM CDT Pulse 53 12/21/2018 11:19 AM CDT Temperature 36.3 C (97.3 F) 12/21/2018 10:00 AM CDT Respiratory Rate 18 12/21/2018 11:19 AM CDT Oxygen Saturation - - Inhaled Oxygen Concentration - - Weight 95.3 kg (210 lb) 12/10/2018 4:17 PM CDT Height 170.2 cm (5' 7 ) 12/10/2018 4:17 PM CDT Body Mass Index 32.89 12/10/2018 4:17 PM CDT Plan of Treatment Health Maintenance Due Date Last Done Comments DTAP/TDAP/TD VACCINES (1 - Tdap) 1966 PNEUMOCOCCAL VACCINE 50+ YEARS (1 of 1 - PCV) 04/26/19 97 ZOSTER VACCINE (1 of 2) 1997 OSTEOPOROSIS SCREENING 2012 RSV VACCINE (60+ or ) (1 - 1-dose 75+ series) 2022 INFLUENZA VACCINE (#1) 2025 Care Teams Chemical Test Engineer Relationship Specialty Start Date End Date Geovany Castelan MD [address] [place] [phone] PCP - General Family Practice 11/27/18
--- NOTE | 2025-03-03 04:52 | ED_ITS ---
HPI - Extremity Problem 2 General: Chief complaint: Extremity Problem,Nontraumatic Stated complaint: bilateral leg pain and swelling Time Seen by Provider: 03/03/25 04:50 History of Present Illness: 79-year-old female presents to the [facility] ency room with complaint of pain in her extremities. Patient was seen earlier this month with similar complaints of pain at that time she had some venous stasis edema with some skin breakdown and serous fluid leak from the skin. Patient reports she feels like the fluid did not completely drain from her leg and now the skin is healed up. She has exquisitely tender lower extremities bilaterally even to light touch. She is on gabapentin for peripheral neuropathy. She does not have any significant swelling in her legs. No history of DVT or PE. No recent trauma no obvious deformity of the foot. No lacerations or abrasions. Associated symptoms: Deny chest pain, fever(s) or rash Related Data Home Medications ?Medication ?Instructions ?Recorded ?Confirmed aspirin 81 mg tablet,delayed 81 mg PO DAILY 04/07/20 0 02/21/25 release (Adult Low Dose Aspirin) ondansetron HCl 4 mg tablet 4 mg PO Q6H PRN 04/13/20 0 02/21/25 potassium chloride 10 mEq 10 meq PO DAILY 06/03/2203/11 tablet,extended release (Klor-Con) Previous Rx's ?Medication ?Instructions ?Recorded Oxygen concentrator and tanks #1 ea 08/20/23 carvedilol 25 mg tablet 25 mg PO BID #180 tabs 04/07 cholecalciferol (vitamin D3) 50 50 mcg PO DAILY #30 ca ps 04/23/24 mcg (2,000 unit) capsule cyanocobalamin (vitamin B-12) 1,000 mcg PO DAILY #30 t abs 04/23/24 1,000 mcg tablet (Vitamin B-12) cyclobenzaprine 10 mg tablet 10 mg PO TID PRN muscle s pasm #30 05/28/24 tabs spironolactone 25 mg tablet 25 mg PO DAILY #30 tabs albuterol sulfate 90 mcg/actuation 2 inh inhalation Q4 H PRN shortness 12/22/24 aerosol inhaler of breath or wheezing #18 gr ams naproxen 500 mg tablet (Naprosyn) 500 mg PO Q12H PRN p ain #20 tabs 01/27/25 furosemide 40 mg tablet (Lasix) 40 mg PO DAILY #30 tab s 02/03/25 Oxygen via nc @2l/min #1 ea 02/04/25 hydrocodone 5 mg-acetaminophen 325 1 tab PO BID PRN pa in 15 days #30 02/21/25 mg tablet tabs pregabalin 75 mg capsule (Lyrica) 75 mg PO BID #60 cap s 03/03/25 Allergies Allergy/AdvReac Type Severity Reaction Status Date / Time codeine Allergy Unknown Unknown Verified 03/03/25 01:11 Penicillins Allergy Unknown Unknown Verified 03/03/25 01:11 Review of Systems 2 Const: Denies: fever(s) or chills Card: Denies: chest pain Resp: Denies: dyspnea GI: Denies: abdominal pain : Denies: dysuria, urinary frequency or urinary urgency Musc: Denies: neck pain or back pain Skin/Breast: Denies: rash PFSH ED 2 PFSH: Medical History Iron deficiency anemia Cystic mass of pancreas Hypertension Breast cancer History of stroke (2019) Degenerative joint disease of spine STEVEN (obstructive sleep apnea) COPD (chronic obstructive pulmonary disease) Urgency incontinence Surgical History Hx of bilateral cataract extraction Hx of tonsillectomy Hx of breast biopsy (11/12/17) Hx of cholecystectomy Hx of lumpectomy (12/24/17) Right breast lumpectomy with axillary sentinel lymph node biopsy Hx of hysterectomy Family History Denies family history of Anesthesia complication Social History Smoking and tobacco/nicotine status: never used tobacco/nicotine Quit status (tobacco/nicotine): has quit using Year quit tobacco: 2018 Former quit date comment: Smoked for 40 years Second hand smoke exposure: Yes Alcohol intake: former Substance/Drug Use: unknown Adopted: No Caregiver/support person: No Lives independently: Yes Marital status: / Current occupational status: retired Physical Exam 2 Const: GENERAL APPEARANCE: cooperative ORIENTATION/CONSCIOUSNESS: Yes awake, Yes oriented to person, Yes oriented to place and Yes oriented to time HENMT: COMMON NORMALS: normocephalic, atraumatic and hearing grossly normal bilaterally HEAD & SCALP: normocephalic and atraumatic Resp: COMMON NORMALS: normal respiratory effort, No retractions, No use of accessory muscles and clear to auscultation bilaterally AUSCULTATION: clear to auscultation bilaterally Cardio: COMMON NORMALS: regular rate, regular rhythm and No murmurs present (Cardio) RATE: regular rate RHYTHM: regular rhythm GI: COMMON NORMALS: Soft to palpation and No hepatosplenomegaly present A USCULTATION: Yes normoactive bowel sounds PALPATION: Yes Soft to palpation, No Tenderness to palpation present (GI), No Guarding due to palpation present (GI) and Yes No hepatosplenomegaly present Extremity: COMMON NORMALS: normal to inspection, capillary refill normal, no clubbing, cyanosis or edema, no calf tenderness and no pedal edema OTHER: No pain with movements at the joints particular at first MTP joint or at the ankle. There is scarring from previous surgeries. Neuro: SENSORIUM/ORIENTATION: Yes oriented to person, Yes oriented to place and Yes oriented to time Skin: OTHER: Chronic changes to the lower extremities bilaterally from venous stasis. Trace edema lower extremities no skin breakdown or ulceration at this time. Course 2 Vital Signs: Vital signs: Vital Signs Temperature 97.6 F 03/03/25 01:08 Pulse Rate 79 03/03/25 05:10 Respiratory Rate 18 03/03/25 01:08 Blood Pressure 122/98 03/03/25 05:10 Pulse Oximetry 98 03/03/25 05:10 Oxygen Delivery Me thod Nasal Cannula 03/03/25 05:10 Oxygen Flow Rate 3 03/03/25 05:10 MDM - Extremity (Nontraumatic) Medical Decision Making Her pain is bilateral not isolated to the joint do not believe she has gout there is no evidence of DVT at this time she does have chronic venous stasis edema. She is on hydrochlorothiazide and Lasix her kidney function has worsened slightly of late potassium is also low we will have her double up on her potassium for the next 3 days hold hydrochlorothiazide. To stop the gabapentin and start on Lyrica 75 mg twice daily have her follow-up with primary care doctor Medical Records I reviewed the patient's medical records. Lab Data I reviewed the patient's lab results. 03/03/25 06:22 03/03/25 06:22 Laboratory Results WBC 13.18 10^3/uL (3.29-11.43) H 03/03/25 06:22 RBC 3.91 10^6/uL (3.85-5.65) 03/03/25 06:22 Hgb 10.70 g/dL (11.27-16.99) L 03/03/25 06:22 Hct 35.2 % (36-47) L 03/03/25 06:22 MCV 90.0 fl (85-98) 03/03/25 06:22 MCH 27.4 pg (27-33) 03/03/25 06:22 MCHC 30.4 g/dL (30-55) 03/03/25 06:22 RDW 13.8 % (12.1-15.1) 03/03/25 06:22 Plt Count 228 10^3/cmm (157-399) 03/03/25 06:22 MPV 10.5 fL (7.4-10.4) H 03/03/25 06:22 Neut % (Auto) 85.9 % 03/03/25 06:22 Lymph % (Auto) 5.8 % 03/03/25 06:22 [place] % (Auto) 6.5 % 03/03/25 06:22 Eos % (Auto) 1.1 % 03/03/25 06:22 Baso % (Auto) 0.3 % 03/03/25 06:22 Neut # (Auto) 11.32 10^3/uL (1.8-7.7) H 03/03/25 06:22 Lymph # (Auto) 0.8 10^3/uL (0.8-4.8) 03/03/25 06:22 [place] # (Auto) 0.9 10^3/uL (0.2-0.9) 03/03/25 06:22 Eos # (Auto) 0.2 10^3/uL (0.0-0.8) 03/03/25 06:22 Baso # (Auto) 0.0 10^3/uL (0.0-0.1) 03/03/25 06:22 Nucleated RBC % (auto) 0 % 03/03/25 06:22 Nucleated RBCs # 0.0 /100WBC 03/03/25 06:22 Sodium 140 mmol/L (136-145) 03/03/25 06:22 Potassium 3.2 mmol/L (3.5-5.1) L 03/03/25 06:22 Chloride 95 mmol/L (98-107) L 03/03/25 06:22 Carbon Dioxide 35 mmol/L (22-29) H 03/03/25 06:22 Anion Gap 13.2 (5-19) 03/03/25 06:22 BUN 37 mg/dL (8-23) H 03/03/25 06:22 Creatinine 1.9 mg/dL (0.5-0.9) H 03/03/25 06:22 GFR Calculation Not Reportable 03/03/25 06:22 Glucose 149 mg/dL (65-115) H 03/03/25 06:22 Calculated Osmolality 301 mOsm/kg (285-295) H 03/03/25 06:22 Calcium 8.9 mg/dL (8.5-10.5) 03/03/25 06:22 Total Bilirubin 0.6 mg/dL (0.15-1.2) 03/03/25 06:22 AST 10 U/L (0-32) 03/03/25 06:22 ALT 7 U/L (0-33) 03/03/25 06:22 Alkaline Phosphatase 60 U/L (35-105) 03/03/25 06:22 Total Protein 7.3 g/dL (6.6-8.7) 03/03/25 06:22 Albumin 3.6 g/dL (3.5-5.2) 03/03/25 06:22 Globulin 3.7 g/dL (1.3-4.6) 03/03/25 06:22 No radiology studies performed this visit Discharge Plan Discharge Patient Disposition: Home Clinical Impression: Lower extremity edema, Peripheral neuropathy, Hypokalemia Condition: Stable Prescriptions: New pregabalin [Lyrica] 75 mg capsule 75 mg PO BID Qty: 60 0RF Discontinued gabapentin 100 mg capsule 100 mg PO DAILY PRN (Reason: Pain) Qty: 30 3RF hydrochlorothiazide 25 mg tablet 25 mg PO DAILY Qty: 90 3RF No Action ondansetron HCl 4 mg tablet 4 mg PO Q6H PRN aspirin [Adult Low Dose Aspirin] 81 mg tablet,delayed release (DR/EC) 81 mg PO DAILY cyclobenzaprine 10 mg tablet 10 mg PO TID PRN (Reason: muscle spasm) Qty: 30 0RF spironolactone 25 mg tablet 25 mg PO DAILY Qty: 30 6RF potassium chloride [Klor-Con 10] 10 mEq tablet extended release 10 meq PO DAILY furosemide [Lasix] 40 mg tablet 40 mg PO DAILY Qty: 30 6RF (DME) Oxygen via nc @2l/min See Rx Instructions .Route .MEDSUPPLY Qty: 1 0RF Rx Instructions: As directed hydrocodone-acetaminophen 5-325 mg tablet 1 tab PO BID PRN (Reason: pain) 15 Days Qty: 30 0RF (DME) Oxygen concentrator and tanks See Rx Instructions .Route .MEDSUPPLY Qty: 1 0RF Rx Instructions: As directed carvedilol 25 mg tablet 25 mg PO BID Qty: 180 3RF Rx Instructions: must administer with a meal/food cholecalciferol (vitamin D3) 50 mcg (2,000 unit) capsule 50 mcg PO DAILY Qty: 30 6RF cyanocobalamin (vitamin B-12) [Vitamin B-12] 1,000 mcg tablet 1,000 mcg PO DAILY Qty: 30 6RF albuterol sulfate 90 mcg/actuation HFA aerosol inhaler 2 inh INHALATION Q4H PRN (Reason: shortness of breath or wheezing) Qty: 18 11RF naproxen [Naprosyn] 500 mg tablet 500 mg PO Q12H PRN (Reason: pain) Qty: 20 0RF Discharge Orders: Discharge ED (Routine); Ordered 03/03/25 Ordered By: Robert Bautista Referrals: Geovany Castelan MD [Primary Care Provider, Family Practice] Discharge Diet: Low Salt Discharge Activity: Increase activity as tolerated Patient Instructions: Opioid Safety, Pain Management, Patient Portal & Diana Instructions Activity Restrictions/Additional Instructions: Thank you for choosing [facility] for your healthcare needs today. It is very important that you follow up as instructed or that you return to the Emergency Department should you have concerns or if your condition changes or worsens in any way. You are seen in the emergency room with complaint of pain in your legs. Your pain is suggestive of peripheral neuropathy. Recommend you stop the gabapentin and instead start Lyrica 75 mg 1 pill twice a day. You are also noted to have low potassium and a mild kidney injury while in the emergency room. He should increase your potassium to 1 pill 3 times a day for the next 3 days and then follow-up with your primary care doctor next week to recheck your potassium and your kidney function. Stop the hydrochlorothiazide. Print Language: Korean Coding Level of Care Code ED Taker Away for Esha Sung
[2025-03-03 05:10] VITALS: BP 122/98; PULSE 79; O2SAT 98
[2025-03-03 06:27] LABS: Hematocrit 35.2 % (36-47); Hemoglobin 10.70 g/dL (11.27-16.99); Mean Corpuscular HGB Conc 30.4 g/dL (30-55); Mean Corpuscular Hemoglobin 27.4 pg (27-33); Mean Corpuscular Volume 90.0 fl (85-98); Nucleated Red Blood Cells % 0 %; Platelet Count 228 10^3/cmm (157-399); Red Blood Count 3.91 10^6/uL (3.85-5.65); White Blood Count 13.18 10^3/uL (3.29-11.43)
[2025-03-03 06:49] LABS: Alanine Aminotransferase 7 U/L (0-33); Albumin Level 3.6 g/dL (3.5-5.2); Alkaline Phosphatase 60 U/L (35-105); Anion Gap 13.2 (5-19); Aspartate Amino Transferase 10 U/L (0-32); Blood Urea Nitrogen 37 mg/dL (8-23); Calcium 8.9 mg/dL (8.5-10.5); Carbon Dioxide 35 mmol/L (22-29); Chloride 95 mmol/L (98-107); Creatinine Clr Calc Pharmacy 31.0593; Globulin 3.7 g/dL (1.3-4.6); Glucose 149 mg/dL (65-115); Osmolality Calculated 301 mOsm/kg (285-295); Potassium 3.2 mmol/L (3.5-5.1); Sodium 140 mmol/L (136-145); Total Protein 7.3 g/dL (6.6-8.7)
[2025-03-03 07:13] VITALS: BP 130/52; PULSE 66; RESP 16; O2SAT 100
== END 2025-03-03 07:14 | disposition home or self-care (01) ==
PROVIDERS: Emergency Provider Family Medicine; PCP Family Medicine
DX: R60.0 Localized edema (principal); G62.9 Polyneuropathy, unspecified; E87.6 Hypokalemia
CPT/HCPCS: 36415; 80053; 85025; 99283